=== PATIENT | female | born 1995 | race Caucasian/White ===

== ENCOUNTER 2016-11-14 18:19 | Emergency (ER) | payer OTHER ==
[~2016-11-14] VITALS: Ht 160 cm; Wt 84.9 kg
[~2016-11-14 18:19] MED LIST: HYDR-5688 PO; IBUP-1050 PO
[2016-11-14 18:26] VITALS: TEMP 36.8; Ht 160 cm; Wt 84.9 kg
[2016-11-14 20:01] LABS: PREG INTERNAL NEGATIVE QC NEG CLEAR BACKGROUND; PREG INTERNAL POSITIVE QC POS CONTROL LINE
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
[2016-11-14 20:33] VITALS: BP 124/80; PULSE 98; O2SAT 98
== END 2016-11-14 20:34 | disposition home or self-care (01) ==
LOC: C.EDB 18:20 → C.EDD 20:34
DX: Z32.02 Encounter for pregnancy test, result negative (principal); F17.200 Nicotine dependence, unspecified, uncomplicated

== ENCOUNTER 2016-12-17 22:31 | Emergency (ER) | payer OTHER ==
[~2016-12-17] VITALS: Ht 160 cm; Wt 88.6 kg
[2016-12-17 22:39] VITALS: TEMP 37.2; Ht 160 cm; Wt 88.6 kg
[2016-12-17] MEDS ORDERED: DEXAMETHASONE SOD INJ 10 MG/ML VIAL IV ONE (23:45)
[2016-12-17] MEDS ORDERED: FAMOTIDINE 20MG/102 ML D5W IV STA (23:45)
[2016-12-17] MEDS ORDERED: DiphenhydrAMINE HCL 50 MG/ML VIAL IV STA (23:45)
[2016-12-17] MEDS ORDERED: CEFTRIAXONE SOD INJ 1 GM ADDVIAL IV STA (23:45)
[2016-12-17] MEDS ORDERED: CEPHALEXIN 500MG HOME PACK 1 EA BTL PO ONE (23:45)
[2016-12-18 00:40] LABS: BASO % 0.2 %; BASO ABS # 0.03 K/uL (0-0.2); COMPLETE YES; EOS % 0.6 %; HEMATOCRIT 38.8 % (37-47); IG% 0.3 %; LYMPH % 18.9 %; MEAN CELL VOLUME 81.7 fL (80-100); MEAN CORPUSCULAR HEMOGLOBIN 28.8 pg (25-34); MEAN CORPUSCULAR HGB CONC 35.3 g/dl (32-36); MEAN PLATELET VOLUME 9.9 fL (7.4-10.4); MONO % 7.6 %; NEUT % 72.4 %; PLATELET COUNT 284 K/uL (130-400); RED BLOOD COUNT 4.75 M/uL (4.2-5.4)
[2016-12-18 00:46] LABS: CREATININE 0.66 mg/dl (0.60-1.20); POTASSIUM 3.4 mmol/L (3.5-5.1)
[2016-12-18] MEDS ORDERED: POTASSIUM CHLORIDE 10 MEQ TABCR PO STA (01:02)
[2016-12-18] MEDS ORDERED: CEPH500C2 PO (01:05)
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
[2016-12-18] MEDS ORDERED: OXYCODONE IR HOME PACK PO ONE (01:30)
[2016-12-18] MEDS ORDERED: OXYC1TAB3 PO (01:32)
[2016-12-18 01:38] VITALS: BP 140/86; PULSE 102; O2SAT 100
== END 2016-12-18 01:39 | disposition home or self-care (01) ==
LOC: C.EDB 22:32 → C.EDA 12-18 01:39
DX: S70.362A Insect bite (nonvenomous), left thigh, initial encounter (principal); L08.9 Local infection of the skin and subcutaneous tissue, unspecified; F17.200 Nicotine dependence, unspecified, uncomplicated; W57.XXXA Bitten or stung by nonvenomous insect and other nonvenomous arthropods, initial encounter

== ENCOUNTER 2017-07-26 21:47 | Emergency (ER) | payer OTHER ==
[~2017-07-26] VITALS: Ht 160 cm; Wt 74.8 kg
[2017-07-26 21:49] VITALS: TEMP 36.6; Ht 160 cm; Wt 74.8 kg
[2017-07-26] MEDS ORDERED: [UNRECOGNIZED DRUG - REMARK] PO (22:01)
[2017-07-26] MEDS ORDERED: SODIUM CHLORIDE 0.9% 1000ML 1,000 ML IV STA (22:20)
[2017-07-26] MEDS ORDERED: SODIUM CHLORIDE 0.9% 1000ML 1,000 ML IV ONE (22:20)
[2017-07-26] MEDS ORDERED: ONDANSETRON INJ 2 MG/ML 2 ML VIAL IV STA (22:20)
[2017-07-26] MEDS ORDERED: KETOROLAC TROMETHAMINE 30 MG/ML VIAL IV STA (22:20)
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
[2017-07-26 22:51] LABS: BASO % 0.2 %; BASO ABS # 0.02 K/uL (0-0.2); COMPLETE YES; EOS % 0.3 %; HEMATOCRIT 41.5 % (37-47); IG% 0.3 %; LYMPH % 18.3 %; LYMPH ABS # 2.18 K/uL (1.2-3.4); MEAN CELL VOLUME 85.6 fL (80-100); MEAN CORPUSCULAR HEMOGLOBIN 28.5 pg (25-34); MEAN CORPUSCULAR HGB CONC 33.3 g/dl (32-36); MEAN PLATELET VOLUME 9.9 fL (7.4-10.4); MONO % 6.9 %; PLATELET COUNT 309 K/uL (130-400); RED BLOOD COUNT 4.85 M/uL (4.2-5.4); WHITE BLOOD COUNT 11.89 K/uL (4.8-10.8)
[2017-07-26 23:12] LABS: BUN/CREATININE RATIO 19.8 (10-20); CALCIUM 9.8 mg/dl (8.5-10.1); CREATININE 0.69 mg/dl (0.60-1.20); POTASSIUM 3.6 mmol/L (3.5-5.1); PREG INTERNAL NEGATIVE QC NEG CLEAR BACKGROUND; PREG INTERNAL POSITIVE QC POS CONTROL LINE
[2017-07-26 23:23] LABS: URINE APPEARANCE CLEAR (CLEAR); URINE BILIRUBIN NEG (NEG); URINE COLOR YELLOW; URINE NITRITE NEG (NEG); URINE PH 7.5 (4.5-7.5); URINE SPECIFIC GRAVITY 1.008 (1.000-1.030); UROBILINOGEN NEG (NEG)
[2017-07-26 23:31] LABS: MANUAL MICROSCOPIC REQUIRED? NO; REVIEW REQ? NO
[2017-07-27 00:23] VITALS: BP 127/68; PULSE 102; O2SAT 98
--- NOTE | 2017-07-27 06:10 | DIAGNOSTIC IMAGING REPORT ---
GALLBLADDER-ABD LIMITED CLINICAL HISTORY: right UQ pain pain. Nausea. TECHNIQUE: Ultrasound COMPARISON STUDY: None FINDINGS: Small amount of gallbladder sludge. No shadowing gallstones. Fatty infiltration of liver. Right kidney is negative for hydronephrosis. Common bile duct 4 mm. IMPRESSION: Small amount of gallbladder sludge. Normal caliber bile ducts. Otherwise negative study. The above report was generated using voice recognition software. It may contain grammatical, syntax or spelling errors. Electronically signed by: Alvaro Rojas M.D. 07/27/2017 6:08 AM Dictated Date/Time: 07/27/2017 6:07 AM
== END 2017-07-27 00:24 | disposition home or self-care (01) ==
LOC: C.EDB 21:49 → C.EDC 07-27 00:24
DX: R10.11 Right upper quadrant pain (principal); Z80.9 Family history of malignant neoplasm, unspecified; Z82.49 Family history of ischemic heart disease and other diseases of the circulatory system; F17.210 Nicotine dependence, cigarettes, uncomplicated

== ENCOUNTER → 2017-08-11 | Outpatient (CLI) | payer OTHER ==
[~2017-08-11] MED LIST changes: -HYDR-5688 PO; -IBUP-1050 PO; +SINCALIDE INJ 1.5 MCG in SODIUM CHLORIDE 0.9% 100ML 100 ML IV ONE; +[UNRECOGNIZED DRUG - REMARK] PO
--- NOTE | 2017-08-11 12:58 | DIAGNOSTIC IMAGING REPORT ---
NUCLEAR MEDICINE HEPATOBILIARY SCAN WITH EJECTION FRACTION ANALYSIS CLINICAL HISTORY: RUQ ABDOMINAL PAIN COMPARISON STUDY: Biliary ultrasound dated 07/26/2017 FINDINGS: The patient was injected with 5.5 mCi of technetium 99m Choletec. Hepatic excretion appeared unremarkable. The gallbladder was first visualized on the 15 minute image. At 1 hour, the patient was administered 1.5 mcg of intravenous sincalide utilizing a 30 minute infusion. The gallbladder ejection fraction was normal measuring 100%. IMPRESSION: Normal study. No evidence of cystic duct obstruction. Gallbladder ejection fraction of 100% Electronically signed by: Charan Zhou M.D. 08/11/2017 12:56 PM Dictated Date/Time: 08/11/2017 12:55 PM
== END | disposition home or self-care (01) ==
LOC: C.NUCL 10:18
PROVIDERS: ATTEND Nurse Practitioner
DX: R10.11 Right upper quadrant pain (principal)

== ENCOUNTER → 2017-08-29 | Day surgery (SDC) | payer OTHER ==
[2017-08-28 14:41] VITALS: BMI 28.0
[~2017-08-29] VITALS: Ht 160 cm; Wt 72.7 kg
[~2017-08-29] MED LIST changes: +BUTA1CAP17 PO; +HYDR-389 PO; +LIDOCAINE HCL 2% 2 ML VIAL (20MG/ML) ONE; +PROPOFOL IV EMULSION 10 MG/ML 20 ML VIAL IV ONE; -SINCALIDE INJ 1.5 MCG in SODIUM CHLORIDE 0.9% 100ML 100 ML IV ONE; +SUMA25TA12 PO; -[UNRECOGNIZED DRUG - REMARK] PO
[2017-08-29 08:38] VITALS: Ht 160 cm; Wt 72.7 kg
--- NOTE | 2017-08-29 08:59 | Endo History and Physical ---
History & Physical Date of Service: Aug 29, 2017. Chief Complaint: ABD PAIN, NAUSEA, VOMITING Referring Physician: DR. ROMY RUTLEDGE History of Present Illness 22 yo CF who presents for EGD secondary to abdominal pain, nausea and vomiting. Past Surgical History Hx Cardiac Surgery: No Hx Internal Defibrillator: No Hx Pacemaker: No Hx Abdominal Surgery: No Hx of Implantable Prosthesis: No Hx Post-Op Nausea and Vomiting: No Hx Cancer Surgery: No Hx Thoracic Surgery: No Hx Orthopedic: No Hx Urinary Tract Surgery: No Family History None Social History Smoking Status: Current Every Day Smoker Hx Substance Use: No Hx Alcohol Use: No Allergies Coded Allergies: No Known Allergies (Verified , 08/29/17) Current Medications Reported Home Medications Medications Dose Route/Sig Max Daily Dose Days Date Category Imitrex (Sumatriptan Succinate) 25 Mg Tab 25 Mg PO PRN PRN 08/28/17 Reported Fioricet (Miifqjhkjt-Jifmnkczhvxdt-Enrml) 1 Cap Cap 1 Cap PO DIRECTED PRN 08/28/17 Reported Atarax (Hydroxyzine Hcl) 10 Mg Tab 5-10 Mg PO 6XDAILY PRN 08/28/17 Reported Vital Signs Weight (Kilograms): 72.73 Height (Feet): 5 Height (Inches): 3 Date Time Temp Pulse Resp B/P (MAP) Pulse Ox O2 Delivery O2 Flow Rate FiO2 08/29/17 08:49 36.6 98 16 122/78 (93) 99 Room Air Physical Exam General Appearance: WD/WN, no apparent distress Respiratory/Chest: Auscultation: breath sounds normal Cardiovascular: Heart Auscultation: RRR Abdomen: Bowel Sounds: normal Inspection & Palpation: soft, non-distended, no tenderness, guarding & rebound Assessment and Plan Assessment: 22 yo CF who presents for EGD secondary to abdominal pain, nausea and vomiting. Plan: Proceed with EGD.
--- NOTE | 2017-08-29 09:46 | Discharge Instructions ---
Endoscopy Patient Instructions Date / Procedure(s) Performed Aug 29, 2017. EGD Allergy Information Coded Allergies: No Known Allergies (Verified , 08/29/17) Discharge Date / Findings Aug 29, 2017. Gastritis s/p biopsies Duodenal biopsies Medication Instructions OK to resume all medications today as prescribed Reported Home Medications Medications Dose Route/Sig Max Daily Dose Days Date Category Imitrex (Sumatriptan Succinate) 25 Mg Tab 25 Mg PO PRN PRN 08/28/17 Reported Fioricet (Wajutcvuom-Wnmueyvwnqpvu-Ujhtl) 1 Cap Cap 1 Cap PO DIRECTED PRN 08/28/17 Reported Atarax (Hydroxyzine Hcl) 10 Mg Tab 5-10 Mg PO 6XDAILY PRN 08/28/17 Reported Provider Instructions Activity Restrictions - No exercising or heavy lifting for 24 hours. - Do not drink alcohol the day of the procedure. - Do not drive a car or operate machinery until the day after the procedure. - Do not make any important decisions or sign important papers in 24 hours after the procedure. Following Day: - Return to full activity which may include returning to work/school. Diet Start your diet with liquids and light foods (jello, soup, juice, toast). Then eat your usual diet if not nauseated. Treatment For Common After Affects For mild abdominal pain, bloating, or excessive gas: - Rest - Eat lightly - Lie on right side Follow-Up Information Follow-up with DR. ROMY RUTLEDGE as scheduled Anesthesia Information What You Should Know You have had a procedure that required some medicine to reduce anxiety and discomfort. This treatment is called moderate sedation. After receiving the treatment, you may be sleepy, but you will be able to breathe on your own. The effects of the treatment may last for several hours. Follow these instructions along with Activity/Diet recommendations noted above: * Do NOT do anything where dizziness or clumsiness would be dangerous. * Rest quietly at home today, then you can be up and about tomorrow. * Have a responsible person stay with you the rest of today. * You may have had an I.V. today. If so, you may take the dressing off later today. Recommendations Call your doctor if: * Trouble breathing * Continuous vomiting for more than 24 hours * Temperature above 101 degrees * Severe abdominal pain or bloating * Pain not relieved by pain medicine ordered * There is increased drainage or redness from any incision * A large amount of rectal bleeding greater than 2-3 tablespoons. (If you had a polyp/s removed or have hemorrhoids, a small amount of blood - from the rectum is to be expected.) * You have any unanswered questions or concerns. IN THE EVENT OF A SERIOUS EMERGENCY, GO TO THE NEAREST EMERGENCY ROOM Your discharge instructions were prepared by provider Darrell Negron. Patient Instructions Signature Page Bailey Jackson Patient (or Guardian) Signature/Date: I have read and understand the instructions given to me by my caregivers. Caregiver/RN/Doctor Signature/Date: The above-named patient and/or guardian has received patient instructions on this date. + Original Patient Signature Page (only) stays with chart. Please make copy for patient.
--- NOTE | 2017-08-29 09:51 | GI REPORT ---
Procedure Date: 08/29/2017 9:08 AM Procedure: Upper GI endoscopy Indications: Epigastric abdominal pain, Nausea with vomiting Medicines: Monitored Anesthesia Care Complications: No immediate complications. Estimated Blood Loss: Estimated blood loss: none. Procedure: Pre-Anesthesia Assessment: - Prior to the procedure, a History and Physical was performed, and patient medications and allergies were reviewed. The patient's tolerance of previous anesthesia was also reviewed. The risks and benefits of the procedure and the sedation options and risks were discussed with the patient. All questions were answered, and informed consent was obtained. Prior Anticoagulants: The patient has taken no previous anticoagulant or antiplatelet agents. ASA Grade Assessment: II - A patient with mild systemic disease. After reviewing the risks and benefits, the patient was deemed in satisfactory condition to undergo the procedure. After obtaining informed consent, the endoscope was passed under direct vision. Throughout the procedure, the patient's blood pressure, pulse, and oxygen saturations were monitored continuously. The scope was introduced through the mouth, and advanced to the second part of duodenum. The upper GI endoscopy was accomplished without difficulty. The patient tolerated the procedure well. Findings: The esophagus was normal. Localized mild inflammation characterized by erythema was found in the gastric antrum. Biopsies were taken with a cold forceps for histology. The examined duodenum was normal. Biopsies were taken with a cold forceps for histology. Impression: - Normal esophagus. - Gastritis. Biopsied. - Normal examined duodenum. Biopsied. Recommendation: - Resume previous diet. - Continue present medications. - Await pathology results. - Return to primary care physician as previously scheduled. Darrell Negron DO 08/29/2017 9:50:53 AM This report has been signed electronically. Note Initiated On: 08/29/2017 9:08 AM I attest to the content of the Intraoperative Record and orders documented therein, exceptions below
[2017-08-29 10:18] VITALS: BP 106/76; PULSE 78; O2SAT 98
--- NOTE | 2017-08-29 11:01 | Anesthesiology Progress Note ---
Anesthesia Post Op Note Date & Time Aug 29, 2017 at 11:01 Vital Signs Pain Intensity: 0 Vital Signs Past 12 Hours Date Time Temp Pulse Resp B/P (MAP) Pulse Ox O2 Delivery O2 Flow Rate FiO2 08/29/17 10:18 78 20 106/76 (86) 98 Room Air 08/29/17 10:03 80 16 120/74 (89) 98 Room Air 08/29/17 09:48 97 16 100/60 (73) 98 Room Air 08/29/17 08:49 36.6 98 16 122/78 (93) 99 Room Air Notes Mental Status: alert / awake / arousable, participated in evaluation Pt Amnestic to Procedure: Yes Nausea / Vomiting: adequately controlled Pain: adequately controlled Airway Patency, RR, SpO2: stable & adequate BP & HR: stable & adequate Hydration State: stable & adequate Anesthetic Complications: no major complications apparent
== END | disposition home or self-care (01) ==
LOC: C.GI 08:28
PROVIDERS: ATTEND Internal Medicine
DX: K29.50 Unspecified chronic gastritis without bleeding (principal); K29.80 Duodenitis without bleeding; F17.200 Nicotine dependence, unspecified, uncomplicated

== ENCOUNTER → 2017-09-17 | Outpatient (CLI) | payer OTHER ==
[~2017-09-17] MED LIST changes: -LIDOCAINE HCL 2% 2 ML VIAL (20MG/ML) ONE; -PROPOFOL IV EMULSION 10 MG/ML 20 ML VIAL IV ONE
== END | disposition home or self-care (01) ==
LOC: C.LAB 11:58
PROVIDERS: ATTEND Physician Assistant
DX: K29.80 Duodenitis without bleeding (principal)

== ENCOUNTER 2023-04-11 15:38 | Inpatient (IN) ==
[2023-04-11] MEDS ORDERED: OXYTOCIN 30 UNITS/500 ML BAG IV PRN (17:28)
[2023-04-11] MEDS ORDERED: LIDOCAINE 1% LOCAL 20 ML VIAL INFIL PRN (17:28)
--- NOTE | 2023-04-11 17:45 | Labor Progress Brief Note ---
Date of Service April 11, 2023 Subjective at 39w5d. Patient presents for induction of labor. Patient did not meet criteria for diagnosis of gHTN spectrum condition, but has had 1 elevated blood pressure value and has had ongoing mild PHAM in the last few days. Labs normal to date, no urine protein. Therefore this is essentially elective IOL. Zaman balloon placed last night and fell out around noon today. No OB c/o on presentation. Assessment & Plan (1) Elevated blood pressure affecting , antepartum: Plan: Patient for induction of labor, start pitocin, AROM when able, epidural on request. Admission and Anticipated Discharge Date Admission Date: April 11, 2023 Physical Exam Genitourinary: /-2, bulging bag, vertex palpated/presenting FHT Cat 1 [place] rare ctx. Results & Data Vital Signs (Past 12 Hours) Vital Signs Temp Pulse Resp BP 04/11/23 16:24 98.4 F 115 H 18 120/71 04/11/23 16:17 18 04/11/23 16:17 98.4 F 18 04/11/23 16:18 115 H 120/71 Coding Level of Care Code None Diagnoses Elevated blood pressure affecting , antepartum O16.9
[2023-04-11] MEDS: LACTATED RINGER'S 1,000 ML IV PRN (18:00)
[2023-04-11] MEDS: OXYTOCIN 30 UNITS/500 ML BAG IV PRN (18:00)
[2023-04-11 18:11] LABS: Hematocrit (blood only) 37.6 % (37.0-47.0); Hemoglobin 12.8 g/dl (12.0-16.0); Mean Corpuscular Hemoglobin 29.1 pg (25.0-34.0); Mean Corpuscular Volume 85.5 fL (80.0-100.0); Mean Platelet Volume 9.8 fL (9.4-12.4); Platelet Count 249 K/uL (130-400); RDW Coefficient of Variation 13.1 % (11.5-14.5); RDW Standard Deviation 40.3 fL (36.4-46.3); White Blood Count 20.56 K/ul (4.8-10.8)
[2023-04-11 18:25] LABS: Alanine Aminotransferase 9 U/L (7-52); Albumin Globulin Ratio 1.1 (0.9-2); Albumin Level 3.6 gm/dl (3.4-5.0); Alkaline Phosphatase 146 U/L (34-104); Anion Gap 8 (3-11); Aspartate Aminotransferase 13 U/L (13-39); BUN Creatinine Ratio 23.5 (10-20); Bilirubin Direct 0.1 mg/dl (0-0.2); Bilirubin,Total 0.6 mg/dl (0.2-1.0); Blood Urea Nitrogen 8 mg/dl (6-23); Calcium 9.1 mg/dl (8.6-10.3); Carbon Dioxide 21 mmol/L (21-32); Chloride 105 mmol/L (98-107); Est GFR (African American) > 150.0 ml/min; Est GFR (Non-African American) > 150.0 ml/min; Globulin 3.2 gm/dl (2.5-4.0); Glucose 84 mg/dl (70-99(Fasting)); Potassium 4.1 mmol/L (3.5-5.1); Sodium 134 mmol/L (136-145); Total Protein 6.8 gm/dl (6.0-8.3)
--- NOTE | 2023-04-11 23:13 | Labor Progress Brief Note ---
Date of Service April 11, 2023 Subjective Tolerating contractions well. Assessment & Plan (1) Elevated blood pressure affecting , antepartum: Plan: Induction of labor. BP normal, labs reassuring. Epidural on request, though pt doing well so far and has not requested it yet. Admission and Anticipated Discharge Date Admission Date: April 11, 2023 Physical Exam Genitourinary: 5/80/-2 SROM clear fluid FHT Cat 1 [place] Q2min Results & Data Vital Signs (Past 12 Hours) Vital Signs Temp Pulse Resp BP 04/11/23 19:16 98.8 F 18 04/11/23 16:24 98.4 F 115 H 18 120/71 04/11/23 23:07 99 H 04/11/23 23:07 117/60 04/11/23 22:04 94 H 04/11/23 22:04 113/61 04/11/23 21:12 114 H 04/11/23 21:12 120/58 L 04/11/23 20:09 123 H 04/11/23 20:09 124/72 04/11/23 19:08 90 04/11/23 19:08 130/58 L 04/11/23 17:56 101 H 04/11/23 17:56 118/66 04/11/23 16:17 18 04/11/23 16:17 98.4 F 18 04/11/23 16:18 115 H 120/71 Coding Level of Care Code None Diagnoses Elevated blood pressure affecting , antepartum O16.9
[2023-04-12] MEDS ORDERED: SODIUM CHLORIDE 0.9% PF INJ 10 ML VIAL ONE (00:14)
[2023-04-12] MEDS ORDERED: fentaNYL citrate PF 100 MCG/2 ML VIAL ONE (00:14)
[2023-04-12] MEDS ORDERED: ePHEDrine sulfate 50 MG/ML AMP ONE (00:14)
[2023-04-12] MEDS ORDERED: BUPIVACAINE 0.25% PF 30 ML VIAL ONE (00:15)
[2023-04-12] MEDS ORDERED: LIDOCAINE 2%/EPINEPHRINE 1:200,000 20 ML PF ONE (00:15)
[2023-04-12] MEDS ORDERED: fentaNYL 2MCG/ML ROPIVACAINE 1.25MG/ML 100 ML BAG EPI ONE (00:15)
--- NOTE | 2023-04-12 00:58 | Anesthesiology Consultation ---
Date of Service April 12, 2023 Assessment & Plan Chart Review Chart Review: Acceptable Risk for Labor Epidural Consults Requested none History Height/Weight Height: 5 ft 3 in Weight: 93.44 kg Allergies Allergy/AdvReac Type Severity Reaction Status Date / Time gluten Allergy Severe celiac's Verified 04/11/23 16:22 disease wheat Allergy Severe celiac's Verified 04/11/23 16:22 disease Medications Home Medications Medication Instructions Recorded Confirmed Last Taken prenat.vits,kay,tiv-zvpe-jurrp 1 tab PO DAILY 12/23/22 04/11/23 04/10/23 08:00 Active Medications Generic Name Dose Route Start Last Admin Trade Name Freq PRN Reason Stop Dose Admin Oxytocin 30 units in 500 mls @ 16 mls/hr 04/11/23 17:33 04/11/23 22:36 Pitocin IV 04/13/23 17:32 0.96 units/hr .Q24H PRN 16 mls/hr Labor Induction/Augmentation Titration Protocol 0.96 UNITS/HR Lactated Ringer's 1,000 mls @ 125 mls/hr 04/11/23 17:28 04/11/23 19:00 Lr IV 04/13/23 17:27 125 mls/hr .Q8H PRN Infusion L&D Protocol Protocol Past Medical History Medical History Anxiety Celiac disease Depression Duodenitis Headache History of anesthesia reaction takes more anesthesia to get to sleep Migraine Past Family History Family History Grandfather Hypertension Grandmother Hypertension Grandfather Hyperlipidemia Father Prolapsing mitral leaflet syndrome Family history of reaction to anesthesia difficulty waking Past Surgical History Surgical History History of esophagogastroduodenoscopy (EGD) (06/2019) History of nevus excision History of tonsillectomy and adenoidectomy History of wisdom tooth extraction Social History Smoking Status: Current every day smoker tobacco type: cigarettes Smoking cigarettes per day: 10 sticks. Do You Dip or Chew Tobacco: No Hx Alcohol Use: No Hx Substance Use: No (smoked marijuana until +HPT) substance use type: does not use Physical Exam Vital Signs Last Vital Signs Temp 36.7 C 04/11/23 23:05 Pulse 108 H 04/12/23 00:57 Resp 18 04/11/23 23:05 BP 121/67 04/12/23 00:57 Pulse Ox 98 04/12/23 00:57 Testing Laboratory Results 04/11/23 17:47 04/11/23 17:47
[2023-04-12] MEDS ORDERED: fentaNYL citrate PF 100 MCG/2 ML VIAL EPI STA (01:00)
[2023-04-12] MEDS ORDERED: NALBUPHINE HCL INJ 10 MG/ML AMP IV PRN (01:00)
[2023-04-12] MEDS ORDERED: fentaNYL citrate PF 100 MCG/2 ML VIAL EPI PRN (01:00)
[2023-04-12] MEDS ORDERED: LIDOCAINE 2% MPF LOCAL 5 ML VIAL EPI PRN (01:00)
[2023-04-12] MEDS ORDERED: ePHEDrine sulfate 50 MG/ML AMP IV PRN (01:00)
[2023-04-12] MEDS ORDERED: SODIUM CHLORIDE 0.9% PF INJ 10 ML VIAL EPI STA (01:00)
[2023-04-12] MEDS ORDERED: LIDOCAINE 2%/EPINEPHRINE 1:200,000 20 ML PF EPI STA (01:00)
[2023-04-12] MEDS ORDERED: BUPIVACAINE 0.25% PF 30 ML VIAL EPI PRN (01:00)
[2023-04-12] MEDS ORDERED: SODIUM CHLORIDE 0.9% PF INJ 10 ML VIAL EPI PRN (01:00)
[2023-04-12] MEDS ORDERED: NALOXONE HCL 0.4 MG/1 ML VIAL/CARP IV PRN (01:00)
[2023-04-12] MEDS ORDERED: diphenhydrAMINE 50 MG/ML VIAL IV PRN (01:00)
[2023-04-12] MEDS ORDERED: NALOXONE HCL 1 MG in SODIUM CHLORIDE 0.9% 1000ML 1,000 ML IV PRN (01:00)
[2023-04-12] MEDS ORDERED: BUPIVACAINE 0.25% PF 30 ML VIAL EPI STA (01:00)
[2023-04-12] MEDS ORDERED: ROPIVACAINE 0.5% PF 5 MG/ML 20 ML VIAL EPI PRN (01:00)
[2023-04-12] MEDS: LACTATED RINGER'S 1,000 ML IV PRN ×3 (04:47→20:48)
--- NOTE | 2023-04-12 07:19 | Labor Progress Brief Note ---
Date of Service April 12, 2023 Subjective Comfortable Assessment & Plan Admission and Anticipated Discharge Date Admission Date: April 11, 2023 Physical Exam Genitourinary: No cervical change. FHT cat 1 [place] Q2-4 Pit @ 20 IUPC placed and initial MVU ~40-45 per contraction, x3 to 4 in a 10 minute window. Will increase pit limit to 30. Results & Data Vital Signs (Past 12 Hours) Vital Signs Temp Pulse Resp BP Pulse Ox 04/12/23 07:12 94 H 96 04/12/23 07:07 97 H 96 04/12/23 07:02 103 H 141/76 H 97 04/12/23 06:57 112 H 97 04/12/23 06:52 94 H 95 04/12/23 06:47 90 98 04/12/23 06:48 93 H 116/56 L 04/12/23 06:41 18 04/12/23 06:41 18 04/12/23 06:42 95 H 98 04/12/23 05:48 18 04/12/23 05:48 18 04/12/23 06:37 99 H 97 04/12/23 06:32 104 H 97 04/12/23 06:31 88 105/58 L 04/12/23 06:27 92 H 96 04/12/23 06:22 88 96 04/12/23 06:20 95 H 90 04/12/23 06:17 95 H 109/56 L 96 04/12/23 06:12 87 96 04/12/23 06:07 92 H 97 04/12/23 06:02 96 H 98 04/12/23 06:01 100 H 18 113/59 L 04/12/23 05:57 87 96 04/12/23 05:52 91 H 96 04/12/23 05:47 83 108/57 L 96 04/12/23 05:42 88 96 04/12/23 05:37 95 H 97 04/12/23 05:32 97 04/12/23 05:32 105 H 04/12/23 05:32 100 H 107/59 L 04/12/23 05:27 98.2 F 95 H 96 04/12/23 05:22 88 98 04/12/23 05:18 100 H 129/65 04/12/23 05:17 105 H 96 04/12/23 05:12 91 H 97 04/12/23 05:07 91 H 96 04/12/23 05:02 87 96 04/12/23 05:01 92 H 116/78 04/12/23 04:57 102 H 97 04/12/23 04:52 85 96 04/12/23 04:47 84 96 04/12/23 04:46 92 H 112/56 L 04/12/23 04:42 78 97 04/12/23 04:37 72 96 04/12/23 04:32 96 04/12/23 04:32 83 04/12/23 04:32 74 98/53 L 04/12/23 04:27 72 96 04/12/23 04:22 76 97 04/12/23 04:17 70 96 04/12/23 04:16 71 97/55 L 04/12/23 04:12 73 96 04/12/23 04:07 76 95 04/12/23 04:02 75 95 04/12/23 03:57 83 96 04/12/23 03:52 79 95 04/12/23 03:47 95 H 97 04/12/23 03:42 83 97 04/12/23 03:37 84 97 04/12/23 03:32 96 04/12/23 03:32 101 H 04/12/23 03:32 115 H 117/77 04/12/23 03:27 85 95 04/12/23 03:03 98.2 F 04/12/23 03:22 83 96 04/12/23 03:17 88 97 04/12/23 03:16 90 119/70 04/12/23 03:12 92 H 96 04/12/23 03:07 89 96 04/12/23 03:02 95 H 96 04/12/23 03:01 102 H 18 126/70 04/12/23 02:57 94 H 97 04/12/23 02:52 86 96 04/12/23 02:47 88 96 04/12/23 02:46 98 H 123/68 04/12/23 02:42 102 H 96 04/12/23 02:37 84 96 04/12/23 02:32 97 H 98 04/12/23 02:31 86 18 119/66 04/12/23 02:27 84 96 04/12/23 02:22 92 H 97 04/12/23 02:17 91 H 96 04/12/23 02:16 88 119/64 04/12/23 02:12 85 96 04/12/23 02:07 87 97 04/12/23 02:02 98 H 97 04/12/23 02:01 90 18 112/62 04/12/23 01:57 88 96 04/12/23 01:52 84 96 04/12/23 01:47 88 96 04/12/23 01:46 86 113/64 04/12/23 01:42 88 97 04/12/23 01:37 89 97 04/12/23 01:32 101 H 97 04/12/23 01:31 86 120/70 04/12/23 01:27 91 H 18 97 04/12/23 01:00 18 04/12/23 01:00 18 04/12/23 00:55 18 04/12/23 00:55 18 04/12/23 01:22 94 H 97 04/12/23 01:17 88 97 04/12/23 01:16 101 H 130/64 04/12/23 01:12 111 H 97 04/12/23 01:07 103 H 97 04/12/23 01:02 108 H 98 04/12/23 01:01 106 H 131/74 04/12/23 00:59 107 H 128/70 04/12/23 00:57 108 H 121/67 98 04/12/23 00:54 105 H 129/67 04/12/23 00:52 112 H 98 04/12/23 00:53 113 H 127/69 04/12/23 00:50 98.2 F 106 H 18 123/63 04/12/23 00:48 107 H 114/64 04/12/23 00:47 98 04/12/23 00:47 107 H 04/12/23 00:47 106 H 121/65 04/12/23 00:45 105 H 125/62 04/12/23 00:42 105 H 96 04/12/23 00:37 104 H 97 04/12/23 00:32 121 H 98 04/12/23 00:27 119 H 96 04/12/23 00:22 127 H 97 04/11/23 23:45 126 H 04/11/23 23:45 133/74 04/11/23 23:05 18 04/11/23 23:05 98.1 F 18 04/11/23 23:07 99 H 04/11/23 23:07 117/60 04/11/23 22:04 94 H 04/11/23 22:04 113/61 04/11/23 21:12 114 H 04/11/23 21:12 120/58 L 04/11/23 20:09 123 H 04/11/23 20:09 124/72 Coding Level of Care Code None Diagnoses
--- NOTE | 2023-04-12 09:11 | Labor Progress Brief Note ---
Date of Service April 12, 2023 Subjective comfortable w/ epidural Assessment & Plan (1) Elevated blood pressure affecting , antepartum: Plan: 27 yo 1 at 39 6/7 wga here for IOL VSS Fetus cat 1 Labor - pit at 26 w/ IUPC in, discussed suspect prior sac was pushing open the cervix more and now that sac has ruptured that pushing has gone which can sometimes happen. Will continue pit, if gets to 30 w/o significant change will pit break GBS neg epidural in place Admission and Anticipated Discharge Date Admission Date: April 11, 2023 Physical Exam Genitourinary: Manual OB Exam: + cervical dilation 4 cm, + cervical effacement 70% and + station -2 OB Exam Monitor Tracing: + external FHT monitor used, + intra-uterine pressure catheter used (q4 but not adequate) and + category I (135-140/mod/+accel/-decel) Results & Data Vital Signs (Past 12 Hours) Vital Signs Temp Pulse Resp BP Pulse Ox O2 Del Method 04/12/23 07:23 Room Air 04/12/23 09:02 101 H 98 04/12/23 08:57 89 96 04/12/23 08:52 88 96 04/12/23 08:47 86 97 04/12/23 08:48 89 119/69 04/12/23 08:42 84 97 04/12/23 08:37 95 H 96 04/12/23 08:34 96 H 130/83 04/12/23 08:32 106 H 97 04/12/23 08:27 93 H 97 04/12/23 08:22 99 H 97 04/12/23 08:17 97 04/12/23 08:17 103 H 04/12/23 08:17 98 H 123/70 04/12/23 08:12 92 H 96 04/12/23 08:07 93 H 96 04/12/23 08:00 18 04/12/23 08:00 18 04/12/23 08:02 90 96 04/12/23 08:01 96 H 117/69 04/12/23 07:57 88 96 04/12/23 07:52 91 H 97 04/12/23 07:47 105 H 97 04/12/23 07:46 121 H 131/71 04/12/23 07:42 105 H 97 04/12/23 07:37 105 H 96 04/12/23 07:32 100 H 97 04/12/23 07:31 90 114/63 04/12/23 07:27 96 H 97 04/12/23 07:22 100 H 96 04/12/23 07:17 97 H 98 04/12/23 07:18 96 H 112/54 L 04/12/23 07:12 94 H 96 04/12/23 07:07 97 H 96 04/12/23 07:02 98.1 F 103 H 18 141/76 H 97 04/12/23 06:57 112 H 97 04/12/23 06:52 94 H 95 04/12/23 06:47 90 98 04/12/23 06:48 93 H 116/56 L 04/12/23 06:41 18 04/12/23 06:41 18 04/12/23 06:42 95 H 98 04/12/23 05:48 18 04/12/23 05:48 18 04/12/23 06:37 99 H 97 04/12/23 06:32 104 H 97 04/12/23 06:31 88 105/58 L 04/12/23 06:27 92 H 96 04/12/23 06:22 88 96 04/12/23 06:20 95 H 90 04/12/23 06:17 95 H 109/56 L 96 04/12/23 06:12 87 96 04/12/23 06:07 92 H 97 04/12/23 06:02 96 H 98 04/12/23 06:01 100 H 18 113/59 L 04/12/23 05:57 87 96 04/12/23 05:52 91 H 96 04/12/23 05:47 83 108/57 L 96 04/12/23 05:42 88 96 04/12/23 05:37 95 H 97 04/12/23 05:32 97 04/12/23 05:32 105 H 04/12/23 05:32 100 H 107/59 L 04/12/23 05:27 98.2 F 95 H 96 04/12/23 05:22 88 98 04/12/23 05:18 100 H 129/65 04/12/23 05:17 105 H 96 04/12/23 05:12 91 H 97 04/12/23 05:07 91 H 96 04/12/23 05:02 87 96 06/10/23 05:01 92 H 116/78 04/12/23 04:57 102 H 97 04/12/23 04:52 85 96 04/12/23 04:47 84 96 04/12/23 04:46 92 H 112/56 L 04/12/23 04:42 78 97 04/12/23 04:37 72 96 04/12/23 04:32 96 04/12/23 04:32 83 04/12/23 04:32 74 98/53 L 04/12/23 04:27 72 96 04/12/23 04:22 76 97 04/12/23 04:17 70 96 04/12/23 04:16 71 97/55 L 04/12/23 04:12 73 96 04/12/23 04:07 76 95 04/12/23 04:02 75 95 04/12/23 03:57 83 96 04/12/23 03:52 79 95 04/12/23 03:47 95 H 97 04/12/23 03:42 83 97 04/12/23 03:37 84 97 04/12/23 03:32 96 04/12/23 03:32 101 H 04/12/23 03:32 115 H 117/77 04/12/23 03:27 85 95 04/12/23 03:03 98.2 F 04/12/23 03:22 83 96 04/12/23 03:17 88 97 04/12/23 03:16 90 119/70 04/12/23 03:12 92 H 96 04/12/23 03:07 89 96 04/12/23 03:02 95 H 96 04/12/23 03:01 102 H 18 126/70 04/12/23 02:57 94 H 97 04/12/23 02:52 86 96 04/12/23 02:47 88 96 04/12/23 02:46 98 H 123/68 04/12/23 02:42 102 H 96 04/12/23 02:37 84 96 04/12/23 02:32 97 H 98 04/12/23 02:31 86 18 119/66 04/12/23 02:27 84 96 04/12/23 02:22 92 H 97 04/12/23 02:17 91 H 96 04/12/23 02:16 88 119/64 04/12/23 02:12 85 96 04/12/23 02:07 87 97 04/12/23 02:02 98 H 97 04/12/23 02:01 90 18 112/62 04/12/23 01:57 88 96 04/12/23 01:52 84 96 04/12/23 01:47 88 96 04/12/23 01:46 86 113/64 04/12/23 01:42 88 97 04/12/23 01:37 89 97 04/12/23 01:32 101 H 97 04/12/23 01:31 86 120/70 04/12/23 01:27 91 H 18 97 04/12/23 01:00 18 04/12/23 01:00 18 04/12/23 00:55 18 04/12/23 00:55 18 04/12/23 01:22 94 H 97 04/12/23 01:17 88 97 04/12/23 01:16 101 H 130/64 04/12/23 01:12 111 H 97 04/12/23 01:07 103 H 97 04/12/23 01:02 108 H 98 04/12/23 01:01 106 H 131/74 04/12/23 00:59 107 H 128/70 04/12/23 00:57 108 H 121/67 98 04/12/23 00:54 105 H 129/67 04/12/23 00:52 112 H 98 04/12/23 00:53 113 H 127/69 04/12/23 00:50 98.2 F 106 H 18 123/63 04/12/23 00:48 107 H 114/64 04/12/23 00:47 98 04/12/23 00:47 107 H 04/12/23 00:47 106 H 121/65 04/12/23 00:45 105 H 125/62 04/12/23 00:42 105 H 96 04/12/23 00:37 104 H 97 04/12/23 00:32 121 H 98 04/12/23 00:27 119 H 96 04/12/23 00:22 127 H 97 04/11/23 23:45 126 H 04/11/23 23:45 133/74 04/11/23 23:05 18 04/11/23 23:05 98.1 F 18 04/11/23 23:07 99 H 04/11/23 23:07 117/60 04/11/23 22:04 94 H 04/11/23 22:04 113/61 04/11/23 21:12 114 H 04/11/23 21:12 120/58 L Coding Level of Care Code None Diagnoses Elevated blood pressure affecting , antepartum O16.9
[2023-04-12] MEDS: fentaNYL 2MCG/ML ROPIVACAINE 1.25MG/ML 100 ML BAG EPI PRN ×2 (10:49→19:46)
--- NOTE | 2023-04-12 17:19 | Labor Progress Brief Note ---
Date of Service April 12, 2023 Subjective comfortable w/ epidural Assessment & Plan (1) Elevated blood pressure affecting , antepartum: Plan: 27 yo 1 at 39 6/7 wga here for IOL VSS Fetus cat 1 Labor - pit at 16, progress is noted from my prior exam. Ctx not adequate so will continue induction GBS neg epidural in place Admission and Anticipated Discharge Date Admission Date: April 11, 2023 Physical Exam Genitourinary: Manual OB Exam: + cervical dilation (4+), + cervical effacement 80% and + station -2 OB Exam Monitor Tracing: + external FHT monitor used, + intra-uterine pressure catheter used (q4-5 but not adequate) and + category I (130/mod/+accel/-decel) Results & Data Vital Signs (Past 12 Hours) Vital Signs Temp Pulse Resp BP Pulse Ox O2 Del Method 04/12/23 07:23 Room Air 04/12/23 17:12 96 H 98 04/12/23 17:07 101 H 96 04/12/23 17:02 96 04/12/23 17:02 88 04/12/23 17:02 91 H 125/66 04/12/23 17:00 99 H 94 04/12/23 16:57 113 H 98 04/12/23 16:52 87 97 04/12/23 16:47 87 96 04/12/23 16:46 93 H 124/64 04/12/23 16:42 87 96 04/12/23 16:37 84 96 04/12/23 16:32 88 97 04/12/23 16:31 86 122/67 04/12/23 16:27 92 H 97 04/12/23 16:22 97 H 97 04/12/23 16:17 97 04/12/23 16:17 94 H 04/12/23 16:17 88 124/72 04/12/23 16:12 89 96 04/12/23 16:07 91 H 96 04/12/23 16:02 86 97 04/12/23 16:01 94 H 16 118/69 04/12/23 15:57 92 H 96 04/12/23 15:52 94 H 97 04/12/23 15:47 97 04/12/23 15:47 88 04/12/23 15:47 93 H 121/72 04/12/23 15:42 83 97 04/12/23 15:37 94 H 98 04/12/23 15:33 90 119/64 04/12/23 15:32 88 97 04/12/23 15:27 88 97 04/12/23 15:22 91 H 97 04/12/23 15:17 97 04/12/23 15:17 89 04/12/23 15:17 94 H 137/69 04/12/23 15:12 94 H 97 04/12/23 15:07 93 H 97 04/12/23 15:02 96 H 96 04/12/23 15:01 98.4 F 94 H 20 127/60 04/12/23 14:57 104 H 97 04/12/23 14:52 101 H 97 04/12/23 14:47 88 97 04/12/23 14:46 85 124/69 04/12/23 14:42 87 97 04/12/23 14:37 88 97 04/12/23 14:32 96 H 159/92 H 98 04/12/23 14:27 74 97 04/12/23 14:22 83 97 04/12/23 14:17 85 122/77 97 04/12/23 14:12 86 97 04/12/23 14:07 88 97 04/12/23 14:02 84 98 04/12/23 14:01 89 18 123/91 04/12/23 13:57 83 96 04/12/23 13:52 82 97 04/12/23 13:47 95 H 97 04/12/23 13:46 105 H 123/76 04/12/23 13:42 94 04/12/23 13:42 88 04/12/23 13:42 89 94 04/12/23 13:37 84 95 04/12/23 13:32 82 95 04/12/23 13:31 78 121/70 04/12/23 13:27 82 96 04/12/23 13:22 80 95 04/12/23 13:17 96 H 98 04/12/23 13:16 90 123/79 04/12/23 13:12 86 96 04/12/23 13:07 91 H 97 04/12/23 13:00 18 04/12/23 13:00 18 04/12/23 13:02 95 H 97 04/12/23 13:01 98.4 F 85 117/71 04/12/23 12:57 94 H 97 04/12/23 12:52 97 H 97 04/12/23 12:47 86 96 04/12/23 12:46 82 107/55 L 04/12/23 12:42 91 H 97 04/12/23 12:37 101 H 97 04/12/23 12:32 88 96 04/12/23 12:31 88 103/53 L 04/12/23 12:27 99 H 97 04/12/23 12:22 80 97 04/12/23 12:00 20 04/12/23 12:00 20 04/12/23 12:18 83 108/55 L 04/12/23 12:17 82 97 04/12/23 12:12 97 H 97 04/12/23 12:07 91 H 97 04/12/23 12:02 103 H 98 04/12/23 12:01 94 H 136/83 04/12/23 11:57 91 H 97 04/12/23 11:52 89 97 04/12/23 11:47 94 H 126/68 97 04/12/23 11:42 89 97 04/12/23 11:37 100 H 97 04/12/23 11:32 95 H 96 04/12/23 11:31 95 H 117/77 04/12/23 11:27 102 H 97 04/12/23 11:22 100 H 97 04/12/23 11:17 117 H 97 04/12/23 11:16 98 H 116/70 04/12/23 11:12 93 H 95 04/12/23 11:07 90 96 04/12/23 11:02 96 04/12/23 11:02 98 H 04/12/23 11:02 93 H 118/72 04/12/23 11:00 18 04/12/23 11:00 98.4 F 18 04/12/23 10:57 92 H 96 04/12/23 10:52 97 H 96 04/12/23 10:47 100 H 95 04/12/23 10:46 101 H 130/62 04/12/23 10:42 101 H 96 04/12/23 10:37 89 97 04/12/23 10:32 96 H 98 04/12/23 10:31 117 H 113/74 04/12/23 10:27 99 H 97 04/12/23 10:01 18 04/12/23 10:01 18 04/12/23 10:22 89 97 04/12/23 10:17 85 96 04/12/23 10:16 87 114/65 04/12/23 10:12 86 97 04/12/23 10:07 95 H 97 04/12/23 10:02 99 H 112/70 97 04/12/23 09:57 103 H 98 04/12/23 09:52 90 96 04/12/23 09:47 91 H 96 04/12/23 09:46 93 H 122/70 04/12/23 09:42 92 H 97 04/12/23 09:37 98 H 97 04/12/23 09:32 113 H 122/67 99 04/12/23 09:27 85 96 04/12/23 09:22 80 97 04/12/23 09:17 85 92/51 L 96 04/12/23 09:12 77 96 04/12/23 09:03 16 04/12/23 09:03 98.2 F 16 04/12/23 09:07 78 97 04/12/23 09:02 101 H 98 04/12/23 08:57 89 96 04/12/23 08:52 88 96 04/12/23 08:47 86 97 04/12/23 08:48 89 119/69 04/12/23 08:42 84 97 04/12/23 08:37 95 H 96 04/12/23 08:34 96 H 130/83 04/12/23 08:32 106 H 97 04/12/23 08:27 93 H 97 04/12/23 08:22 99 H 97 04/12/23 08:17 97 04/12/23 08:17 103 H 04/12/23 08:17 98 H 123/70 04/12/23 08:12 92 H 96 04/12/23 08:07 93 H 96 04/12/23 08:00 18 04/12/23 08:00 18 04/12/23 08:02 90 96 04/12/23 08:01 96 H 117/69 04/12/23 07:57 88 96 04/12/23 07:52 91 H 97 04/12/23 07:47 105 H 97 04/12/23 07:46 121 H 131/71 04/12/23 07:42 105 H 97 04/12/23 07:37 105 H 96 04/12/23 07:32 100 H 97 04/12/23 07:31 90 114/63 04/12/23 07:27 96 H 97 04/12/23 07:22 100 H 96 04/12/23 07:17 97 H 98 04/12/23 07:18 96 H 112/54 L 04/12/23 07:12 94 H 96 04/12/23 07:07 97 H 96 04/12/23 07:02 98.1 F 103 H 18 141/76 H 97 04/12/23 06:57 112 H 97 04/12/23 06:52 94 H 95 04/12/23 06:47 90 98 04/12/23 06:48 93 H 116/56 L 04/12/23 06:41 18 04/12/23 06:41 18 04/12/23 06:42 95 H 98 04/12/23 05:48 18 04/12/23 05:48 18 04/12/23 06:37 99 H 97 04/12/23 06:32 104 H 97 04/12/23 06:31 88 105/58 L 04/12/23 06:27 92 H 96 04/12/23 06:22 88 96 04/12/23 06:20 95 H 90 04/12/23 06:17 95 H 109/56 L 96 04/12/23 06:12 87 96 04/12/23 06:07 92 H 97 04/12/23 06:02 96 H 98 04/12/23 06:01 100 H 18 113/59 L 04/12/23 05:57 87 96 04/12/23 05:52 91 H 96 04/12/23 05:47 83 108/57 L 96 04/12/23 05:42 88 96 04/12/23 05:37 95 H 97 04/12/23 05:32 97 04/12/23 05:32 105 H 04/12/23 05:32 100 H 107/59 L 04/12/23 05:27 98.2 F 95 H 96 04/12/23 05:22 88 98 04/12/23 05:18 100 H 129/65 Coding Level of Care Code None Diagnoses Elevated blood pressure affecting , antepartum O16.9
--- NOTE | 2023-04-12 19:58 | Labor Progress Brief Note ---
Date of Service April 12, 2023 Subjective comfortable w/ epidural Assessment & Plan (1) Elevated blood pressure affecting , antepartum: Plan: 27 yo 1 at 39 6/7 wga here for eIOL VSS Fetus cat 1 Labor - pit at 24, exam is similar to prior. Ctx still inadequate but improved from prior. Has gotten to 30 once and was adequate at some point but then ctx began spacing out so was given a break. With pit at 24 getting closer but still not adequate. Discussed if still not able to get adequate at 30, will have maxed out pit twice and likely some aspect of cpd that is difficult to assess externally and may recommend CS. Discussed reasoning for this with length of rupture, amount of change, risk of infection, etc. Discussed if able to get adequate to 30 will certainly see if makes further change at that point. Ample time given for questions, answered to apparent satisfaction GBS neg epidural in place Admission and Anticipated Discharge Date Admission Date: April 11, 2023 Physical Exam Genitourinary: Manual OB Exam: + cervical dilation (4+), + cervical effacement 80% and + station -2 OB Exam Monitor Tracing: + external FHT monitor used, + intra-uterine pressure catheter used (q4-5 but not adequate, increased from prior) and + category I (130/mod/+accel/-decel) Results & Data Vital Signs (Past 12 Hours) Vital Signs Temp Pulse Resp BP Pulse Ox 04/12/23 19:11 98.6 F 18 04/12/23 19:52 144 H 97 04/12/23 19:47 98 04/12/23 19:47 108 H 04/12/23 19:47 109 H 134/87 04/12/23 19:42 121 H 98 04/12/23 19:37 87 98 04/12/23 19:32 84 97 04/12/23 19:33 86 131/65 04/12/23 19:27 89 97 04/12/23 19:22 84 97 04/12/23 19:17 85 127/81 97 04/12/23 19:12 87 97 04/12/23 19:07 91 H 97 04/12/23 19:02 97 04/12/23 19:02 91 H 04/12/23 19:02 95 H 140/115 H 04/12/23 18:57 85 97 04/12/23 18:52 93 H 97 04/12/23 18:47 90 127/82 97 04/12/23 18:42 88 97 04/12/23 18:37 100 H 97 04/12/23 18:32 89 97 04/12/23 18:33 90 136/78 04/12/23 17:01 18 04/12/23 17:01 98.8 F 18 04/12/23 18:27 95 H 97 04/12/23 18:22 101 H 96 04/12/23 18:17 94 H 127/68 97 04/12/23 18:12 101 H 96 04/12/23 18:07 93 H 98 04/12/23 18:02 99 H 98 04/12/23 18:01 106 H 124/72 04/12/23 17:59 18 04/12/23 17:59 18 04/12/23 17:57 100 H 98 04/12/23 17:52 96 H 98 04/12/23 17:47 97 H 98 04/12/23 17:46 90 124/62 04/12/23 17:42 88 97 04/12/23 17:37 88 98 04/12/23 17:32 89 98 04/12/23 17:31 83 127/65 04/12/23 17:27 93 H 97 04/12/23 17:22 83 98 04/12/23 17:17 94 H 97 04/12/23 17:18 86 119/61 04/12/23 17:15 18 04/12/23 17:15 98.6 F 18 04/12/23 17:12 96 H 98 04/12/23 17:07 101 H 96 04/12/23 17:02 96 04/12/23 17:02 88 04/12/23 17:02 91 H 125/66 04/12/23 17:00 99 H 94 04/12/23 16:57 113 H 98 04/12/23 16:52 87 97 04/12/23 16:47 87 96 04/12/23 16:46 93 H 124/64 04/12/23 16:42 87 96 04/12/23 16:37 84 96 04/12/23 16:32 88 97 04/12/23 16:31 86 122/67 04/12/23 16:27 92 H 97 04/12/23 16:22 97 H 97 04/12/23 16:17 97 04/12/23 16:17 94 H 04/12/23 16:17 88 124/72 04/12/23 16:12 89 96 04/12/23 16:07 91 H 96 04/12/23 16:02 86 97 04/12/23 16:01 94 H 16 118/69 04/12/23 15:57 92 H 96 04/12/23 15:52 94 H 97 04/12/23 15:47 97 04/12/23 15:47 88 04/12/23 15:47 93 H 121/72 04/12/23 15:42 83 97 04/12/23 15:37 94 H 98 04/12/23 15:33 90 119/64 04/12/23 15:32 88 97 04/12/23 15:27 88 97 04/12/23 15:22 91 H 97 04/12/23 15:17 97 04/12/23 15:17 89 04/12/23 15:17 94 H 137/69 04/12/23 15:12 94 H 97 04/12/23 15:07 93 H 97 04/12/23 15:02 96 H 96 04/12/23 15:01 98.4 F 94 H 20 127/60 04/12/23 14:57 104 H 97 04/12/23 14:52 101 H 97 04/12/23 14:47 88 97 04/12/23 14:46 85 124/69 04/12/23 14:42 87 97 04/12/23 14:37 88 97 04/12/23 14:32 96 H 159/92 H 98 04/12/23 14:27 74 97 04/12/23 14:22 83 97 04/12/23 14:17 85 122/77 97 04/12/23 14:12 86 97 04/12/23 14:07 88 97 04/12/23 14:02 84 98 04/12/23 14:01 89 18 123/91 04/12/23 13:57 83 96 04/12/23 13:52 82 97 04/12/23 13:47 95 H 97 04/12/23 13:46 105 H 123/76 04/12/23 13:42 94 04/12/23 13:42 88 04/12/23 13:42 89 94 04/12/23 13:37 84 95 04/12/23 13:32 82 95 04/12/23 13:31 78 121/70 04/12/23 13:27 82 96 04/12/23 13:22 80 95 04/12/23 13:17 96 H 98 04/12/23 13:16 90 123/79 04/12/23 13:12 86 96 04/12/23 13:07 91 H 97 04/12/23 13:00 18 04/12/23 13:00 18 04/12/23 13:02 95 H 97 04/12/23 13:01 98.4 F 85 117/71 04/12/23 12:57 94 H 97 04/12/23 12:52 97 H 97 04/12/23 12:47 86 96 04/12/23 12:46 82 107/55 L 04/12/23 12:42 91 H 97 04/12/23 12:37 101 H 97 04/12/23 12:32 88 96 04/12/23 12:31 88 103/53 L 04/12/23 12:27 99 H 97 04/12/23 12:22 80 97 04/12/23 12:00 20 04/12/23 12:00 20 04/12/23 12:18 83 108/55 L 04/12/23 12:17 82 97 04/12/23 12:12 97 H 97 04/12/23 12:07 91 H 97 04/12/23 12:02 103 H 98 04/12/23 12:01 94 H 136/83 04/12/23 11:57 91 H 97 04/12/23 11:52 89 97 04/12/23 11:47 94 H 126/68 97 04/12/23 11:42 89 97 04/12/23 11:37 100 H 97 04/12/23 11:32 95 H 96 04/12/23 11:31 95 H 117/77 04/12/23 11:27 102 H 97 04/12/23 11:22 100 H 97 04/12/23 11:17 117 H 97 04/12/23 11:16 98 H 116/70 04/12/23 11:12 93 H 95 04/12/23 11:07 90 96 04/12/23 11:02 96 04/12/23 11:02 98 H 04/12/23 11:02 93 H 118/72 04/12/23 11:00 18 04/12/23 11:00 98.4 F 18 04/12/23 10:57 92 H 96 04/12/23 10:52 97 H 96 04/12/23 10:47 100 H 95 04/12/23 10:46 101 H 130/62 04/12/23 10:42 101 H 96 04/12/23 10:37 89 97 04/12/23 10:32 96 H 98 04/12/23 10:31 117 H 113/74 04/12/23 10:27 99 H 97 04/12/23 10:01 18 04/12/23 10:01 18 04/12/23 10:22 89 97 04/12/23 10:17 85 96 04/12/23 10:16 87 114/65 04/12/23 10:12 86 97 04/12/23 10:07 95 H 97 04/12/23 10:02 99 H 112/70 97 04/12/23 09:57 103 H 98 04/12/23 09:52 90 96 04/12/23 09:47 91 H 96 04/12/23 09:46 93 H 122/70 04/12/23 09:42 92 H 97 04/12/23 09:37 98 H 97 04/12/23 09:32 113 H 122/67 99 04/12/23 09:27 85 96 04/12/23 09:22 80 97 04/12/23 09:17 85 92/51 L 96 04/12/23 09:12 77 96 04/12/23 09:03 16 04/12/23 09:03 98.2 F 16 04/12/23 09:07 78 97 04/12/23 09:02 101 H 98 04/12/23 08:57 89 96 04/12/23 08:52 88 96 04/12/23 08:47 86 97 04/12/23 08:48 89 119/69 04/12/23 08:42 84 97 04/12/23 08:37 95 H 96 04/12/23 08:34 96 H 130/83 04/12/23 08:32 106 H 97 04/12/23 08:27 93 H 97 04/12/23 08:22 99 H 97 04/12/23 08:17 97 04/12/23 08:17 103 H 04/12/23 08:17 98 H 123/70 04/12/23 08:12 92 H 96 04/12/23 08:07 93 H 96 04/12/23 08:00 18 04/12/23 08:00 18 04/12/23 08:02 90 96 04/12/23 08:01 96 H 117/69 04/12/23 07:57 88 96 Coding Level of Care Code None Diagnoses Elevated blood pressure affecting , antepartum O16.9
[2023-04-12] MEDS: OXYTOCIN 30 UNITS/500 ML BAG IV PRN (21:14)
[2023-04-13] MEDS ORDERED: CITRIC ACID/SODIUM CITRATE 15 ML UDC PO SCH (00:15)
[2023-04-13] MEDS ORDERED: AZITHROMYCIN 500 MG in DEXTROSE 5% 250 ML IV ONE (00:15)
--- NOTE | 2023-04-13 00:19 | Labor Progress Brief Note ---
Date of Service April 13, 2023 Subjective comfortable w/ epidural Assessment & Plan (1) Elevated blood pressure affecting , antepartum: Plan: 27 yo G1 at 40 wga presents for eIOL VSS Fetus cat 1 Labor - pit has now gone to 30 x 2 without being able to get adequate both times. Cervix has essentiall remained unchanged for me during my shift. This had been discussed pre-emptively earlier and again now. Discussed recommendation for CS and pt is also desiring. Discussed indications, risks, benefits, alternatives with risks including infection, bleeding, injury to adjacent structures (bowel, bladder, ureters, blood vessels, nerves, baby), possible need for blood transfusion and/or life saving hysterectomy, VTE. Consent reviewed in detail w/ pt and signed after all questions answered to her satisfaction. Plan for ancef and azithro for antibx, anesthesia and peds made aware Admission and Anticipated Discharge Date Admission Date: April 11, 2023 Physical Exam Genitourinary: Manual OB Exam: + cervical dilation (4+), + cervical effacement 80% and + station -2 OB Exam Monitor Tracing: + external FHT monitor used, + intra-uterine pressure catheter used (q4-5 but not adequate, increased from pr ior) and + category I (130/mod/+accel/-decel) Results & Data Vital Signs (Past 12 Hours) Vital Signs Temp Pulse Resp BP Pulse Ox 04/12/23 19:11 98.6 F 18 04/13/23 00:12 126 H 97 04/13/23 00:07 112 H 97 04/13/23 00:02 115 H 97 04/13/23 00:01 118 H 116/74 04/12/23 23:57 98 H 96 04/12/23 23:52 105 H 95 04/12/23 23:47 103 H 96 04/12/23 23:46 97 H 118/72 04/12/23 23:42 101 H 97 04/12/23 23:37 97 H 97 04/12/23 23:32 97 H 97 04/12/23 23:31 18 04/12/23 23:31 99.0 F 109 H 18 124/76 04/12/23 23:27 96 H 98 04/12/23 23:22 100 H 97 04/12/23 23:17 103 H 98 04/12/23 23:16 109 H 120/71 04/12/23 23:12 97 H 97 04/12/23 23:07 96 H 97 04/12/23 23:02 107 H 98 04/12/23 23:01 98 H 110/69 04/12/23 22:57 99 H 98 04/12/23 22:52 102 H 99 04/12/23 22:47 108 H 98 04/12/23 22:46 105 H 119/63 04/12/23 22:42 112 H 98 04/12/23 22:37 101 H 98 04/12/23 22:32 110 H 97 04/12/23 22:31 105 H 118/63 04/12/23 22:27 94 H 98 04/12/23 22:22 105 H 98 04/12/23 22:17 102 H 97 04/12/23 22:12 118 H 98 04/12/23 22:07 106 H 97 04/12/23 22:02 102 H 97 04/12/23 22:01 115 H 114/72 04/12/23 21:57 99 H 97 04/12/23 21:52 102 H 97 04/12/23 21:47 97 04/12/23 21:47 100 H 04/12/23 21:47 100 H 131/74 04/12/23 21:42 114 H 98 04/12/23 21:37 102 H 97 04/12/23 21:32 112 H 18 109/66 97 04/12/23 21:27 109 H 97 04/12/23 21:22 114 H 97 04/12/23 21:17 110 H 97 04/12/23 21:16 105 H 118/75 04/12/23 21:12 108 H 98 04/12/23 21:07 108 H 97 04/12/23 21:06 18 04/12/23 21:06 99.0 F 18 04/12/23 21:02 121 H 98 04/12/23 21:01 109 H 116/76 04/12/23 20:57 113 H 97 04/12/23 20:52 114 H 98 04/12/23 20:47 97 04/12/23 20:47 120 H 04/12/23 20:47 133 H 113/80 04/12/23 20:42 120 H 98 04/12/23 20:37 115 H 98 04/12/23 20:32 113 H 98 04/12/23 20:31 114 H 121/65 04/12/23 20:27 111 H 98 04/12/23 20:22 104 H 97 04/12/23 20:17 104 H 97 04/12/23 20:16 113 H 122/65 04/12/23 20:12 112 H 98 04/12/23 20:07 115 H 98 04/12/23 20:02 122 H 97 04/12/23 20:01 139 H 141/75 H 04/12/23 19:57 132 H 18 97 04/12/23 19:52 144 H 97 04/12/23 19:47 98 04/12/23 19:47 108 H 04/12/23 19:47 109 H 134/87 04/12/23 19:42 121 H 98 04/12/23 19:37 87 98 04/12/23 19:32 84 97 04/12/23 19:33 86 131/65 04/12/23 19:27 89 97 04/12/23 19:22 84 97 04/12/23 19:17 85 127/81 97 04/12/23 19:12 87 97 04/12/23 19:07 91 H 97 04/12/23 19:02 97 04/12/23 19:02 91 H 04/12/23 19:02 95 H 140/115 H 04/12/23 18:57 85 97 04/12/23 18:52 93 H 97 04/12/23 18:47 90 127/82 97 04/12/23 18:42 88 97 04/12/23 18:37 100 H 97 04/12/23 18:32 89 97 04/12/23 18:33 90 136/78 04/12/23 17:01 18 04/12/23 17:01 98.8 F 18 04/12/23 18:27 95 H 97 04/12/23 18:22 101 H 96 04/12/23 18:17 94 H 127/68 97 04/12/23 18:12 101 H 96 04/12/23 18:07 93 H 98 04/12/23 18:02 99 H 98 04/12/23 18:01 106 H 124/72 04/12/23 17:59 18 04/12/23 17:59 18 04/12/23 17:57 100 H 98 04/12/23 17:52 96 H 98 04/12/23 17:47 97 H 98 04/12/23 17:46 90 124/62 04/12/23 17:42 88 97 04/12/23 17:37 88 98 04/12/23 17:32 89 98 04/12/23 17:31 83 127/65 04/12/23 17:27 93 H 97 04/12/23 17:22 83 98 04/12/23 17:17 94 H 97 04/12/23 17:18 86 119/61 04/12/23 17:15 18 04/12/23 17:15 98.6 F 18 04/12/23 17:12 96 H 98 04/12/23 17:07 101 H 96 04/12/23 17:02 96 04/12/23 17:02 88 04/12/23 17:02 91 H 125/66 04/12/23 17:00 99 H 94 04/12/23 16:57 113 H 98 04/12/23 16:52 87 97 04/12/23 16:47 87 96 04/12/23 16:46 93 H 124/64 04/12/23 16:42 87 96 04/12/23 16:37 84 96 04/12/23 16:32 88 97 04/12/23 16:31 86 122/67 04/12/23 16:27 92 H 97 04/12/23 16:22 97 H 97 04/12/23 16:17 97 04/12/23 16:17 94 H 04/12/23 16:17 88 124/72 04/12/23 16:12 89 96 04/12/23 16:07 91 H 96 04/12/23 16:02 86 97 04/12/23 16:01 94 H 16 118/69 04/12/23 15:57 92 H 96 04/12/23 15:52 94 H 97 04/12/23 15:47 97 04/12/23 15:47 88 04/12/23 15:47 93 H 121/72 04/12/23 15:42 83 97 04/12/23 15:37 94 H 98 04/12/23 15:33 90 119/64 04/12/23 15:32 88 97 04/12/23 15:27 88 97 04/12/23 15:22 91 H 97 04/12/23 15:17 97 04/12/23 15:17 89 04/12/23 15:17 94 H 137/69 04/12/23 15:12 94 H 97 04/12/23 15:07 93 H 97 04/12/23 15:02 96 H 96 04/12/23 15:01 98.4 F 94 H 20 127/60 04/12/23 14:57 104 H 97 04/12/23 14:52 101 H 97 04/12/23 14:47 88 97 04/12/23 14:46 85 124/69 04/12/23 14:42 87 97 04/12/23 14:37 88 97 04/12/23 14:32 96 H 159/92 H 98 04/12/23 14:27 74 97 04/12/23 14:22 83 97 04/12/23 14:17 85 122/77 97 04/12/23 14:12 86 97 04/12/23 14:07 88 97 04/12/23 14:02 84 98 04/12/23 14:01 89 18 123/91 04/12/23 13:57 83 96 04/12/23 13:52 82 97 04/12/23 13:47 95 H 97 04/12/23 13:46 105 H 123/76 04/12/23 13:42 94 04/12/23 13:42 88 04/12/23 13:42 89 94 04/12/23 13:37 84 95 04/12/23 13:32 82 95 04/12/23 13:31 78 121/70 04/12/23 13:27 82 96 04/12/23 13:22 80 95 04/12/23 13:17 96 H 98 04/12/23 13:16 90 123/79 04/12/23 13:12 86 96 04/12/23 13:07 91 H 97 04/12/23 13:00 18 04/12/23 13:00 18 04/12/23 13:02 95 H 97 04/12/23 13:01 98.4 F 85 117/71 04/12/23 12:57 94 H 97 04/12/23 12:52 97 H 97 04/12/23 12:47 86 96 04/12/23 12:46 82 107/55 L 04/12/23 12:42 91 H 97 04/12/23 12:37 101 H 97 04/12/23 12:32 88 96 04/12/23 12:31 88 103/53 L 04/12/23 12:27 99 H 97 04/12/23 12:22 80 97 04/12/23 12:18 83 108/55 L 04/12/23 12:17 82 97 Coding Level of Care Code None Diagnoses Elevated blood pressure affecting , antepartum O16.9
[2023-04-13] MEDS ORDERED: diphenhydrAMINE 50 MG/ML VIAL IV PRN ×2 (00:42→18:42)
[2023-04-13] MEDS ORDERED: MoRPHine SULFATE PF 1 MG/ML 10 ML AMP/VIAL INT SPINAL ONE (00:42)
[2023-04-13] MEDS ORDERED: NALOXONE HCL 0.08 MG in SYRINGE 1.8 ML IV PRN (00:42)
[2023-04-13] MEDS ORDERED: NALBUPHINE HCL INJ 10 MG/ML AMP IV PRN (00:42)
[2023-04-13] MEDS ORDERED: LACTATED RINGER'S 500 ML IV PRN (00:42)
[2023-04-13] MEDS ORDERED: HYDROmorphone INJ 0.5 MG/0.5 ML SYR IV PRN (00:42)
[2023-04-13] MEDS ORDERED: PROMETHAZINE HCL 6.25 MG in SODIUM CHLORIDE 0.9% 50 ML IV PRN (00:42)
[2023-04-13] MEDS ORDERED: ONDANSETRON INJ 2 MG/ML 2 ML VIAL IV PRN ×2 (00:42→18:42)
[2023-04-13] MEDS ORDERED: MEPERIDINE HCL 25 MG/ML CARP/VIAL IV PRN (00:42)
[2023-04-13] MEDS ORDERED: ePHEDrine sulfate 50 MG/ML AMP IV PRN (00:42)
[2023-04-13] MEDS ORDERED: NALOXONE HCL 1 MG in SODIUM CHLORIDE 0.9% 1000ML 1,000 ML IV PRN (00:42)
[2023-04-13] MEDS ORDERED: NALOXONE HCL 0.4 MG/1 ML VIAL/CARP IV PRN (00:42)
[2023-04-13] MEDS ORDERED: MoRPHine SULFATE 2 MG/ML CARP IV PRN (00:42)
--- NOTE | 2023-04-13 00:42 | Communication Note ---
Date of Service: April 13, 2023 Failure to progress. Patient is comfortable with her epidural; plan to use this for surgical anesthetic.
[2023-04-13] MEDS ORDERED: NO NARCOTICS OR SEDATIVES SCH (00:45)
[2023-04-13] MEDS ORDERED: DC INTRASPINAL MORPHINE SCH (00:45)
[2023-04-13] MEDS ORDERED: SODIUM CHLORIDE 0.9% 1000ML 1,000 ML IV SCH (00:45)
[2023-04-13] MEDS ORDERED: MoRPHine SULFATE PF 1 MG/ML 10 ML AMP/VIAL ONE (01:12)
[2023-04-13] MEDS ORDERED: SODIUM CHLORIDE 0.9% 250 ML IV PRN (01:40)
[2023-04-13] MEDS ORDERED: OXYTOCIN 10 UNITS/ML VIAL ONE (01:48)
[2023-04-13] MEDS ORDERED: ONDANSETRON INJ 2 MG/ML 2 ML VIAL ONE (01:48)
[2023-04-13] MEDS ORDERED: KETOROLAC 30 MG/ML VIAL ONE (01:48)
--- NOTE | 2023-04-13 02:02 | Operative Report ---
[facility] Post Operative Report Pre & Post Diagnosis Operation Date: 04/13/23 00:45 Pre-Op Diagnosis: 1. Single intrauterine at 40 wga 2. Failed induction of labor Post-Op Diagnosis: 1. Single intrauterine at 40 wga 2. Failed induction of labor 3. Delivered I identified the patient and participated in the time-out.: Yes Procedure Operation Date: 04/13/23 00:45 Actual Procedures p Primary Low Transverse Section in LD for delivery of live male at 0108 - Shirley Wei MD Surgeon Shirley Wei MD Brim Rounder [facility] Arun Estimated Blood Loss 500 Findings Consistent with Post-Op Diagnosis Normal appearing uterus, bilateral fallopian tubes. L ovary with <1cm simple cyst, R ovary wnl. Viable male infant with APGARs of 9 and 9 at 1 and 5 minutes, respectively Fluids 1500cc crystalloid, UOP 200cc clear urine Specimens Cord blood, placenta Drains Khan draining clear urine Anesthesia Type L&D Only Epidural Exists Complications none Disposition Accompanied Patient To Recovery: Yes Disposition: L&D Indications 27 yo G1 at 40 wga presented one day ago for elective induction of labor due to concern for blood pressures without formal diagnosis of hypertension. Kahn bulb was placed and subsequently expulsed. Following khan bulb, she was found to be 4cm and started on pitocin. She underwent srom and received an epidural for pain control. Pitocin was titrated up however it was found that on the exams after ROM, the cervix was likely further dilated due to the sac and was found to be 4cm so IUPC was placed and pitocin titrated up to 30. Minimal change was noted after two hours at 30 so pitocin break was given. Pitocin was restarted and titrated up to 30 again however no change was again noted. She was counseled regarding options and discussed that she met criteria for failed induction and desired to proceed with procedure. Description of Procedure The patient was taken to the operating room after consents were ensured. The patient was properly identified. Epidural anesthesia was bolused without difficulty. The patient was placed in a dorsal supine position with left lateral tilt, then prepped and draped in normal sterile fashion. Surgical time out was performed. Antibiotics were given for prophylaxis. Anesthesia was tested to ensure adequate surgical levels. Pfannenstiel skin incision was performed and carried down to the underlying fascia with a knife. The fascia was then nicked in the midline and extended laterally with pickups and Robles scissors. Superior portion of the fascia was grasped with Kochers x2 and elevated off the underlying rectus muscles using blunt dissection. Inferior portion of the fascia was then grasped with Art clamps x2 and also elevated off the underlying muscles with blunt dissection. Midline was identified. The peritoneum was then entered and extended to provide adequate room for delivery of baby. A hand was inserted into the abdomen, uterus was noted to be clear of adhesions. Bladder blade was inserted, bladder flap was created in the usual fashion. A low transverse uterine incision was made in the uterus and extended bluntly in a superior to inferior fashion. Clear fluid was noted at the time of entry. head was grasped and elevated through the hysterotomy in an atraumatic fashion. The baby delivered in TENZIN position, no nuchal cord. Remainder of the body delivered without incident. Nose and mouth were bulb suctioned on the surgical field. The cord was double clamped and cut, baby was handed off to awaiting pediatrics staff. Cord segment and blood were obtained. Placenta was then expressed from the uterus. The uterus was exteriorized. Several passes were made inside the uterus to remove the remaining membranes. Attention was then turned to the hysterotomy, which was then closed with a running locked suture of 0 Vicryl on a CTX needle. An imbricating layer was then performed using 0-Monocryl. There was noted to be good hemostasis. The posterior cul-de-sac was then inspected and cleaned of clot and debris. The hysterotomy was again inspected and noted to be hemostatic. The uterus was returned to the abdomen. The right and left pericolic gutters were cleaned of all clot and debris. The hysterotomy was again noted to be hemostatic. Space of Retzius was noted to be hemostatic. The fascia was then closed with a running suture of 0 Vicryl on a CT1 needle. Subcutaneous tissue was copiously irrigated and noted to be hemostatic. Subcutaneous tissue was re-approximated using 2-0 plain gut. The skin was then closed with a running suture of 3-0 Monocryl in a subcuticular fashion. At termination of the procedure, fundal pressure was applied and a moderate amount of lochia was expressed. Pressure dressing was applied to the patient. She tolerated the procedure well. All sponge, needle, i nstrument counts were correct x 2. I attest to the content of the Intraoperative Record and any orders documented therein. Any exceptions are noted below. OB Procedure Charges 00499
--- NOTE | 2023-04-13 02:05 | Anesthesiology Progress Note ---
Date of Service April 13, 2023 Anesthesia Post Procedure Vital Signs Vital Signs: Temp Pulse Resp BP Pulse Ox O2 Del Method 04/12/23 19:11 37.0 C 18 04/12/23 07:23 Room Air 04/13/23 01:59 101 H 99 04/13/23 01:56 100 H 118/59 L 04/13/23 01:54 99 H 100 04/13/23 00:37 99 H 97 04/13/23 00:32 111 H 97 04/13/23 00:27 125 H 98 04/13/23 00:22 119 H 97 04/13/23 00:17 124 H 97 04/13/23 00:12 126 H 97 04/13/23 00:07 112 H 97 04/13/23 00:02 115 H 97 04/13/23 00:01 118 H 116/74 04/12/23 23:57 98 H 96 04/12/23 23:52 105 H 95 04/12/23 23:47 103 H 96 04/12/23 23:46 97 H 118/72 04/12/23 23:42 101 H 97 04/12/23 23:37 97 H 97 04/12/23 23:32 97 H 97 04/12/23 23:31 18 04/12/23 23:31 37.2 C 109 H 18 124/76 04/12/23 23:27 96 H 98 04/12/23 23:22 100 H 97 04/12/23 23:17 103 H 98 04/12/23 23:16 109 H 120/71 04/12/23 23:12 97 H 97 04/12/23 23:07 96 H 97 04/12/23 23:02 107 H 98 04/12/23 23:01 98 H 110/69 04/12/23 22:57 99 H 98 04/12/23 22:52 102 H 99 04/12/23 22:47 108 H 98 04/12/23 22:46 105 H 119/63 04/12/23 22:42 112 H 98 04/12/23 22:37 101 H 98 04/12/23 22:32 110 H 97 04/12/23 22:31 105 H 118/63 04/12/23 22:27 94 H 98 04/12/23 22:22 105 H 98 04/12/23 22:17 102 H 97 06/10/23 22:12 118 H 98 04/12/23 22:07 106 H 97 04/12/23 22:02 102 H 97 04/12/23 22:01 115 H 114/72 04/12/23 21:57 99 H 97 04/12/23 21:52 102 H 97 04/12/23 21:47 97 04/12/23 21:47 100 H 04/12/23 21:47 100 H 131/74 04/12/23 21:42 114 H 98 04/12/23 21:37 102 H 97 04/12/23 21:32 112 H 18 109/66 97 04/12/23 21:27 109 H 97 04/12/23 21:22 114 H 97 04/12/23 21:17 110 H 97 04/12/23 21:16 105 H 118/75 04/12/23 21:12 108 H 98 04/12/23 21:07 108 H 97 04/12/23 21:06 18 04/12/23 21:06 37.2 C 18 04/12/23 21:02 121 H 98 04/12/23 21:01 109 H 116/76 04/12/23 20:57 113 H 97 04/12/23 20:52 114 H 98 04/12/23 20:47 97 04/12/23 20:47 120 H 04/12/23 20:47 133 H 113/80 04/12/23 20:42 120 H 98 04/12/23 20:37 115 H 98 04/12/23 20:32 113 H 98 04/12/23 20:31 114 H 121/65 04/12/23 20:27 111 H 98 04/12/23 20:22 104 H 97 04/12/23 20:17 104 H 97 04/12/23 20:16 113 H 122/65 04/12/23 20:12 112 H 98 04/12/23 20:07 115 H 98 04/12/23 20:02 122 H 97 04/12/23 20:01 139 H 141/75 H 04/12/23 19:57 132 H 18 97 04/12/23 19:52 144 H 97 04/12/23 19:47 98 04/12/23 19:47 108 H 04/12/23 19:47 109 H 134/87 06/10/23 19:42 121 H 98 04/12/23 19:37 87 98 04/12/23 19:32 84 97 04/12/23 19:33 86 131/65 04/12/23 19:27 89 97 04/12/23 19:22 84 97 04/12/23 19:17 85 127/81 97 04/12/23 19:12 87 97 04/12/23 19:07 91 H 97 04/12/23 19:02 97 04/12/23 19:02 91 H 04/12/23 19:02 95 H 140/115 H 04/12/23 18:57 85 97 04/12/23 18:52 93 H 97 04/12/23 18:47 90 127/82 97 04/12/23 18:42 88 97 04/12/23 18:37 100 H 97 04/12/23 18:32 89 97 04/12/23 18:33 90 136/78 04/12/23 17:01 18 04/12/23 17:01 37.1 C 18 04/12/23 18:27 95 H 97 04/12/23 18:22 101 H 96 04/12/23 18:17 94 H 127/68 97 04/12/23 18:12 101 H 96 04/12/23 18:07 93 H 98 04/12/23 18:02 99 H 98 04/12/23 18:01 106 H 124/72 04/12/23 17:59 18 04/12/23 17:59 18 04/12/23 17:57 100 H 98 04/12/23 17:52 96 H 98 04/12/23 17:47 97 H 98 04/12/23 17:46 90 124/62 04/12/23 17:42 88 97 04/12/23 17:37 88 98 04/12/23 17:32 89 98 04/12/23 17:31 83 127/65 04/12/23 17:27 93 H 97 04/12/23 17:22 83 98 04/12/23 17:17 94 H 97 04/12/23 17:18 86 119/61 04/12/23 17:15 18 04/12/23 17:15 37.0 C 18 04/12/23 17:12 96 H 98 04/12/23 17:07 101 H 96 04/12/23 17:02 96 04/12/23 17:02 88 04/12/23 17:02 91 H 125/66 04/12/23 17:00 99 H 94 04/12/23 16:57 113 H 98 04/12/23 16:52 87 97 04/12/23 16:47 87 96 04/12/23 16:46 93 H 124/64 04/12/23 16:42 87 96 04/12/23 16:37 84 96 04/12/23 16:32 88 97 04/12/23 16:31 86 122/67 04/12/23 16:27 92 H 97 04/12/23 16:22 97 H 97 04/12/23 16:17 97 04/12/23 16:17 94 H 04/12/23 16:17 88 124/72 04/12/23 16:12 89 96 04/12/23 16:07 91 H 96 04/12/23 16:02 86 97 04/12/23 16:01 94 H 16 118/69 04/12/23 15:57 92 H 96 04/12/23 15:52 94 H 97 04/12/23 15:47 97 04/12/23 15:47 88 04/12/23 15:47 93 H 121/72 04/12/23 15:42 83 97 04/12/23 15:37 94 H 98 04/12/23 15:33 90 119/64 04/12/23 15:32 88 97 04/12/23 15:27 88 97 04/12/23 15:22 91 H 97 04/12/23 15:17 97 04/12/23 15:17 89 04/12/23 15:17 94 H 137/69 04/12/23 15:12 94 H 97 04/12/23 15:07 93 H 97 04/12/23 15:02 96 H 96 04/12/23 15:01 36.9 C 94 H 20 127/60 04/12/23 14:57 104 H 97 04/12/23 14:52 101 H 97 04/12/23 14:47 88 97 04/12/23 14:46 85 124/69 04/12/23 14:42 87 97 04/12/23 14:37 88 97 04/12/23 14:32 96 H 159/92 H 98 04/12/23 14:27 74 97 04/12/23 14:22 83 97 04/12/23 14:17 85 122/77 97 04/12/23 14:12 86 97 04/12/23 14:07 88 97 04/12/23 14:02 84 98 04/12/23 14:01 89 18 123/91 04/12/23 13:57 83 96 04/12/23 13:52 82 97 04/12/23 13:47 95 H 97 04/12/23 13:46 105 H 123/76 04/12/23 13:42 94 04/12/23 13:42 88 04/12/23 13:42 89 94 04/12/23 13:37 84 95 04/12/23 13:32 82 95 04/12/23 13:31 78 121/70 04/12/23 13:27 82 96 04/12/23 13:22 80 95 04/12/23 13:17 96 H 98 04/12/23 13:16 90 123/79 04/12/23 13:12 86 96 04/12/23 13:07 91 H 97 04/12/23 13:00 18 04/12/23 13:00 18 04/12/23 13:02 95 H 97 04/12/23 13:01 36.9 C 85 117/71 04/12/23 12:57 94 H 97 04/12/23 12:52 97 H 97 04/12/23 12:47 86 96 04/12/23 12:46 82 107/55 L 04/12/23 12:42 91 H 97 04/12/23 12:37 101 H 97 04/12/23 12:32 88 96 04/12/23 12:31 88 103/53 L 04/12/23 12:27 99 H 97 04/12/23 12:22 80 97 04/12/23 12:00 20 04/12/23 12:00 20 04/12/23 12:18 83 108/55 L 04/12/23 12:17 82 97 04/12/23 12:12 97 H 97 04/12/23 12:07 91 H 97 04/12/23 12:02 103 H 98 04/12/23 12:01 94 H 136/83 04/12/23 11:57 91 H 97 04/12/23 11:52 89 97 04/12/23 11:47 94 H 126/68 97 04/12/23 11:42 89 97 04/12/23 11:37 100 H 97 04/12/23 11:32 95 H 96 04/12/23 11:31 95 H 117/77 04/12/23 11:27 102 H 97 04/12/23 11:22 100 H 97 04/12/23 11:17 117 H 97 04/12/23 11:16 98 H 116/70 04/12/23 11:12 93 H 95 04/12/23 11:07 90 96 04/12/23 11:02 96 04/12/23 11:02 98 H 04/12/23 11:02 93 H 118/72 04/12/23 11:00 18 04/12/23 11:00 36.9 C 18 04/12/23 10:57 92 H 96 04/12/23 10:52 97 H 96 04/12/23 10:47 100 H 95 04/12/23 10:46 101 H 130/62 04/12/23 10:42 101 H 96 04/12/23 10:37 89 97 04/12/23 10:32 96 H 98 04/12/23 10:31 117 H 113/74 04/12/23 10:27 99 H 97 04/12/23 10:01 18 04/12/23 10:01 18 04/12/23 10:22 89 97 04/12/23 10:17 85 96 04/12/23 10:16 87 114/65 04/12/23 10:12 86 97 04/12/23 10:07 95 H 97 04/12/23 10:02 99 H 112/70 97 04/12/23 09:57 103 H 98 04/12/23 09:52 90 96 04/12/23 09:47 91 H 96 04/12/23 09:46 93 H 122/70 04/12/23 09:42 92 H 97 04/12/23 09:37 98 H 97 04/12/23 09:32 113 H 122/67 99 04/12/23 09:27 85 96 04/12/23 09:22 80 97 04/12/23 09:17 85 92/51 L 96 04/12/23 09:12 77 96 04/12/23 09:03 16 04/12/23 09:03 36.8 C 16 04/12/23 09:07 78 97 04/12/23 09:02 101 H 98 04/12/23 08:57 89 96 04/12/23 08:52 88 96 04/12/23 08:47 86 97 04/12/23 08:48 89 119/69 04/12/23 08:42 84 97 04/12/23 08:37 95 H 96 04/12/23 08:34 96 H 130/83 04/12/23 08:32 106 H 97 04/12/23 08:27 93 H 97 04/12/23 08:22 99 H 97 04/12/23 08:17 97 04/12/23 08:17 103 H 04/12/23 08:17 98 H 123/70 04/12/23 08:12 92 H 96 04/12/23 08:07 93 H 96 04/12/23 08:00 18 04/12/23 08:00 18 04/12/23 08:02 90 96 04/12/23 08:01 96 H 117/69 04/12/23 07:57 88 96 04/12/23 07:52 91 H 97 04/12/23 07:47 105 H 97 04/12/23 07:46 121 H 131/71 04/12/23 07:42 105 H 97 04/12/23 07:37 105 H 96 04/12/23 07:32 100 H 97 04/12/23 07:31 90 114/63 04/12/23 07:27 96 H 97 04/12/23 07:22 100 H 96 04/12/23 07:17 97 H 98 04/12/23 07:18 96 H 112/54 L 04/12/23 07:12 94 H 96 04/12/23 07:07 97 H 96 04/12/23 07:02 36.7 C 103 H 18 141/76 H 97 04/12/23 06:57 112 H 97 04/12/23 06:52 94 H 95 04/12/23 06:47 90 98 04/12/23 06:48 93 H 116/56 L 04/12/23 06:41 18 04/12/23 06:41 18 04/12/23 06:42 95 H 98 04/12/23 05:48 18 04/12/23 05:48 18 04/12/23 06:37 99 H 97 04/12/23 06:32 104 H 97 04/12/23 06:31 88 105/58 L 04/12/23 06:27 92 H 96 04/12/23 06:22 88 96 04/12/23 06:20 95 H 90 04/12/23 06:17 95 H 109/56 L 96 04/12/23 06:12 87 96 04/12/23 06:07 92 H 97 04/12/23 06:02 96 H 98 04/12/23 06:01 100 H 18 113/59 L 04/12/23 05:57 87 96 04/12/23 05:52 91 H 96 04/12/23 05:47 83 108/57 L 96 04/12/23 05:42 88 96 04/12/23 05:37 95 H 97 04/12/23 05:32 97 04/12/23 05:32 105 H 04/12/23 05:32 100 H 107/59 L 04/12/23 05:27 36.8 C 95 H 96 04/12/23 05:22 88 98 04/12/23 05:18 100 H 129/65 04/12/23 05:17 105 H 96 04/12/23 05:12 91 H 97 04/12/23 05:07 91 H 96 04/12/23 05:02 87 96 04/12/23 05:01 92 H 116/78 04/12/23 04:57 102 H 97 04/12/23 04:52 85 96 04/12/23 04:47 84 96 04/12/23 04:46 92 H 112/56 L 04/12/23 04:42 78 97 04/12/23 04:37 72 96 04/12/23 04:32 96 04/12/23 04:32 83 04/12/23 04:32 74 98/53 L 04/12/23 04:27 72 96 04/12/23 04:22 76 97 04/12/23 04:17 70 96 04/12/23 04:16 71 97/55 L 04/12/23 04:12 73 96 04/12/23 04:07 76 95 04/12/23 04:02 75 95 04/12/23 03:57 83 96 04/12/23 03:52 79 95 04/12/23 03:47 95 H 97 04/12/23 03:42 83 97 04/12/23 03:37 84 97 04/12/23 03:32 96 04/12/23 03:32 101 H 04/12/23 03:32 115 H 117/77 04/12/23 03:27 85 95 04/12/23 03:03 36.8 C 04/12/23 03:22 83 96 04/12/23 03:17 88 97 04/12/23 03:16 90 119/70 04/12/23 03:12 92 H 96 04/12/23 03:07 89 96 04/12/23 03:02 95 H 96 04/12/23 03:01 102 H 18 126/70 04/12/23 02:57 94 H 97 04/12/23 02:52 86 96 04/12/23 02:47 88 96 04/12/23 02:46 98 H 123/68 04/12/23 02:42 102 H 96 04/12/23 02:37 84 96 04/12/23 02:32 97 H 98 04/12/23 02:31 86 18 119/66 04/12/23 02:27 84 96 04/12/23 02:22 92 H 97 04/12/23 02:17 91 H 96 04/12/23 02:16 88 119/64 04/12/23 02:12 85 96 04/12/23 02:07 87 97 Pain Intensity Right Back: Pain Intensity: 0 Transfer of Care Handoff Completed per policy Notes Mental Status: alert / awake / arousable Nausea / Vomiting: adequately controlled Pain: adequately controlled Airway Patency, RR, SpO2: stable & adequate BP & HR: stable & adequate Hydration State: stable & adequate Anesthetic Complications: no major complications apparent
--- NOTE | 2023-04-13 02:06 | Anesthesia Procedure Note ---
Date of Service April 13, 2023 Anesthesia Post Epidural Note Vital Signs Vital Signs: Temp Pulse Resp BP Pulse Ox O2 Del Method 37.2 C 86 18 118/59 L 98 Room Air 04/12/23 23:31 04/13/23 02:04 04/12/23 23:31 04/13/23 01:56 04/13/23 02:04 04/12/23 07:23 Pain Intensity Right Back: Pain Intensity: 0 Notes Mental Status: alert / awake / arousable Nausea / Vomiting: adequately controlled Pain: adequately controlled Airway Patency, RR, SpO2: stable & adequate BP & HR: stable & adequate Hydration State: stable & adequate Neuraxial Anesthesia: was administered and sensory block is resolving Anesthetic Complications: no major complications apparent and Pt Satisfied with anesthetic care Epidural: Removed without complications and With tip intact
[2023-04-13] MEDS ORDERED: LACTATED RINGER'S 1,000 ML IV SCH (02:07)
[2023-04-13] MEDS ORDERED: MAGNESIUM HYDROXIDE SUSP 30 ML UDC PO PRN (02:07)
[2023-04-13] MEDS ORDERED: SENNA 8.6 MG TAB PO PRN (02:07)
[2023-04-13] MEDS ORDERED: DIPHTHERIA/TETANUS/PERTUSSIS Vaccine (Tdap, Age 7+yrs) 0.5mL SYR/VL IM ONE (02:07)
[2023-04-13] MEDS ORDERED: BENZOCAINE 20% AER SPR 82.5 GM CAN EXT PRN (02:07)
[2023-04-13] MEDS ORDERED: MEASLES, MUMPS & RUBELLA VIRUS VIAL SQ ONE (02:07)
[2023-04-13] MEDS ORDERED: OXYTOCIN 20 UNITS in LACTATED RINGER'S 1,000 ML IV SCH (02:07)
[2023-04-13] MEDS ORDERED: HYDROCORTISONE ACETATE 25 MG SUPP PR PRN (02:07)
[2023-04-13] MEDS: KETOROLAC 30 MG/ML VIAL IV PRN ×3 (06:11→17:50)
[2023-04-13] MEDS: SIMETHICONE 80 MG CHEW PO SCH ×4 (07:59→20:31)
[2023-04-13] MEDS: DOCUSATE SODIUM 100 MG CAP PO SCH ×2 (07:59→20:31)
[2023-04-13] MEDS: FERROUS SULFATE 325 MG TAB PO SCH (07:59)
[2023-04-13] MEDS: PRENATAL VITAMIN 1 TAB PO SCH (07:59)
[2023-04-13] MEDS ORDERED: PROMETHAZINE HCL 25 MG in SODIUM CHLORIDE 0.9% 50 ML IV PRN (18:42)
[2023-04-13] MEDS ORDERED: diphenhydrAMINE Capsule 25 MG CAP PO PRN (18:42)
[2023-04-13] MEDS ORDERED: KETOROLAC 30 MG/ML VIAL IV PRN (18:42)
[2023-04-13] MEDS: oxyCODONE/ACETAMINOPHEN 5mg/325mg TAB PO PRN ×2 (18:44→23:05)
[2023-04-13] MEDS: IBUPROFEN 600 MG TAB PO PRN (23:05)
[2023-04-14] MEDS: IBUPROFEN 600 MG TAB PO PRN ×5 (03:23→21:54)
[2023-04-14] MEDS: oxyCODONE/ACETAMINOPHEN 5mg/325mg TAB PO PRN ×5 (03:23→21:55)
[2023-04-14 06:25] LABS: Basophils # (auto) 0.05 K/uL (0-0.2); Basophils % (auto) 0.3 %; Eosinophils # (auto) 0.27 K/uL (0-0.50); Eosinophils % (auto) 1.5 %; Hematocrit (blood only) 31.5 % (37.0-47.0); Hemoglobin 10.7 g/dl (12.0-16.0); Immature Granulocytes % (auto) 1.1 %; Lymphocytes # (auto) 1.92 K/uL (1.2-3.4); Lymphocytes % (auto) 10.4 %; Mean Corpuscular Hemoglobin 28.9 pg (25.0-34.0); Mean Corpuscular Volume 85.1 fL (80.0-100.0); Mean Platelet Volume 10.1 fL (9.4-12.4); Monocytes # (auto) 1.49 K/uL (0.11-0.59); Monocytes % (auto) 8.1 %; Neutrophils # (auto) 14.54 K/uL (1.40-6.50); Neutrophils % (auto) 78.6 %; Platelet Count 217 K/uL (130-400); RDW Coefficient of Variation 13.2 % (11.5-14.5); RDW Standard Deviation 40.8 fL (36.4-46.3); White Blood Count 18.47 K/ul (4.8-10.8)
--- NOTE | 2023-04-14 07:28 | Obstetrical Progress Note ---
Date of Service April 14, 2023 Assessment & Plan (1) Encounter for care and examination after delivery: 27 yo POD 1 from pLT, doing well -Meeting all pp milestones -O+/rubella equiv, MMR ordered/ -f/u 6 weeks for appt, continue routine pp care Subjective Ambulation: ambulating normally Voiding: no voiding problems Passing Gas:: Yes Diet Tolerance:: regular diet Lochia:: Small Feeding Type:: breast feeding Pain well managed with medication Review of Systems Denies fevers, chills, n/v, PHAM, CP, SOB Physical Exam Constitutional WD/WN, vitals as above no acute distress Respiratory normal respiratory effort, lungs clear to auscultation Cardiovascular RRR, no murmur, no edema Gastrointestinal (Abdomen) Percussion/Palpation: abdomen soft; abdomen nontender fundus firm at umbilicus and NT, incision c/d/i Musculoskeletal BLE symmetric, nonerythematous, nontender Results & Data Vital Signs (Past 12 Hours) Vital Signs Temp Pulse Resp BP Pulse Ox O2 Del Method 04/14/23 03:35 97.9 F 91 H 18 99/65 L 98 Room Air 04/13/23 23:10 98.2 F 82 18 110/70 96 Room Air 04/13/23 19:40 Room Air 04/13/23 19:40 97.9 F 98 H 18 111/70 97 Room Air
[2023-04-14] MEDS: SIMETHICONE 80 MG CHEW PO SCH ×4 (07:53→20:34)
[2023-04-14] MEDS: DOCUSATE SODIUM 100 MG CAP PO SCH ×2 (07:54→20:34)
[2023-04-14] MEDS: FERROUS SULFATE 325 MG TAB PO SCH (07:55)
[2023-04-14] MEDS: PRENATAL VITAMIN 1 TAB PO SCH (07:55)
[2023-04-14] MEDS ORDERED: bisacodyL 5 MG TABEC PO SCH (20:00)
[2023-04-15] MEDS ORDERED: bisacodyL 10 MG SUPP PR PRN (01:49)
[2023-04-15] MEDS: IBUPROFEN 600 MG TAB PO PRN ×2 (01:53→06:49)
[2023-04-15] MEDS: oxyCODONE/ACETAMINOPHEN 5mg/325mg TAB PO PRN ×2 (01:54→06:48)
[2023-04-15 07:13] LABS: Hematocrit (blood only) 29.8 % (37.0-47.0); Hemoglobin 10.1 g/dl (12.0-16.0)
--- NOTE | 2023-04-15 08:45 | Obstetrical Progress Note ---
Date of Service April 15, 2023 Assessment & Plan (1) Encounter for care and examination after delivery: POD#2 doing well. Desires DC home. Rx sent Percocet #20 tabs to [facility]. Followup 6w in office. Reviewed postop instructions. Incision CDI. Subjective Ambulation: ambulating normally Voiding: no voiding problems Diet Tolerance:: regular diet Lochia:: Moderate Review of Systems All systems reviewed & are unremarkable except as noted in HPI & below Physical Exam Constitutional WD/WN, vitals as above no acute distress Respiratory normal respiratory effort Cardiovascular Rate/Rhythm: regular rate and regular rhythm Gastrointestinal (Abdomen) Inspection/Auscultation: abdomen normal to inspection; abdomen not distended Percussion/Palpation: abdomen soft Genitourinary OB Exam Abdomen: + fundal height Fundus: + firm; not tender Results & Data Vital Signs (Past 12 Hours) Vital Signs Temp Pulse Pulse Resp BP BP Pulse Ox 04/15/23 07:42 36.5 C 100 H 18 120/77 99 04/14/23 23:00 36.8 C 108 H 18 126/68 O2 Del Method 04/15/23 07:42 Room Air 04/14/23 23:00 Room Air
[2023-04-15] MEDS: PRENATAL VITAMIN 1 TAB PO SCH (08:47)
[2023-04-15] MEDS: SIMETHICONE 80 MG CHEW PO SCH (08:47)
[2023-04-15] MEDS: FERROUS SULFATE 325 MG TAB PO SCH (08:47)
[2023-04-15] MEDS: DOCUSATE SODIUM 100 MG CAP PO SCH (08:47)
--- NOTE | 2023-04-16 13:56 | Discharge Summary ---
Date of Service April 16, 2023 Admission HPI Per Admitting Provider at 39w5d. Patient presents for induction of labor. Patient did not meet criteria for diagnosis of gHTN spectrum condition, but has had 1 elevated blood pressure value and has had ongoing mild PHAM in the last few days. Labs normal to date, no urine protein. Therefore this is essentially elective IOL. Khan balloon placed last night and fell out around noon today. No OB c/o on presentation Admission Exam (Per Admitting) Constitutional WD/WN, vitals as above no acute distress Respiratory normal respiratory effort, lungs clear to auscultation Cardiovascular RRR, no murmur, no edema Gastrointestinal (Abdomen) Percussion/Palpation: abdomen soft; abdomen nontender Genitourinary Manual OB Exam: + cervical dilation (4+) + 4 cm, + cervical effacement + 80% and + station + -2 OB Exam Monitor Tracing: + external FHT monitor used, + intra-uterine pressure catheter used (q4-5 but not adequate, increased from prior) and + category I (130/mod/+accel/-decel) Discharge Data Consultations 04/11/23 17:29 Consult Anesthesiology Stat Procedures Performed Operation Date: 04/13/23 00:45 Actual Procedures p Section in LD for delivery of live male at 0108 - Shirley Wei MD Hospital Course (1) Encounter for care and examination after delivery: 27 yo G1 at 40 wga presented one day ago for elective induction of labor due to concern for blood pressures without formal diagnosis of hypertension. Khan bulb was placed and subsequently expulsed. Following khan bulb, she was found to be 4cm and started on pitocin. She underwent srom and received an epidural for pain control. Pitocin was titrated up however it was found that on the exams after ROM, the cervix was likely further dilated due to the sac and was found to be 4cm so IUPC was placed and pitocin titrated up to 30. Minimal change was noted after two hours at 30 so pitocin break was given. Pitocin was restarted and titrated up to 30 again however no change was again noted. She was counseled regarding options and discussed that she met criteria for failed induction and desired to proceed with procedure. See op report for details. Postop course uncomplicated, discharged home on pod2 Coding Level of Care Code None Diagnoses Encounter for care and examination after delivery Z39.2
== END 2023-04-15 10:01 | disposition home or self-care (01) | DRG 788 ==
LOC: 4S1 16:07 → 4E2 04-13 04:36